=== PATIENT | female | born 1950 | race Caucasian/White ===

== ENCOUNTER 2021-09-14 17:58 | Observation (INO) | payer MEDICARE ==
[2021-09-14] MEDS ORDERED: MORPHINE SULFATE 4 MG INJ IV ONE (18:30)
[2021-09-14] MEDS ORDERED: Sodium Chloride 0.9% 1000 ML 1,000 ML IV STA (18:30)
[2021-09-14] MEDS ORDERED: Zofran 4 MG/2 ML VIAL IV ONE (18:30)
[2021-09-14] MEDS ORDERED: MORPHINE SULFATE 4 MG INJ ONE (18:37)
[2021-09-14] MEDS ORDERED: Sodium Chloride 0.9% 1000 ML 1,000 ML ONE (18:37)
[2021-09-14] MEDS ORDERED: Zofran 4 MG/2 ML VIAL ONE (18:37)
--- NOTE | 2021-09-14 18:47 | ERPHSYRPT ---
- History of Present Illness Historian: patient Exam Limitations: no limitations Patient Subjective Stated Complaint: pt here for abd pain for 2 days, no nausea, states pain is worse after she eats Triage Nursing Assessment: pt alert, arrived per wc, resp easy,skin w/w/p, abd soft pain to upper abd Timing/Duration: day(s) (two days) Activities at Onset: none Quality: cramping Abdominal Pain Onset Location: RLQ, periumbilical Pain Radiation: no radiation Severity of Pain-Max: moderate Severity of Pain-Current: moderate Modifying Factors: Improves With: nothing Associated Symptoms: denies symptoms Hx Influenza Vaccination/Date Given: Yes Hx Pneumococcal Vaccination/Date Given: No Immunizations Up to Date: Yes <OSMAR LEE - Last Filed: 09/14/21 18:44> <IDALMIS PAREDES - Last Filed: 09/14/21 20:14> - History of Present Illness Time Seen by Provider: 09/14/21 18:44 Physician History: pt here for abd pain for 2 days, no nausea, states pain is worse after she eats Patient is 70-year-old female with significant past medical history of hypertension obesity osteoarthritis of the knee started having abdominal pain in the right lower quadrant and periumbilical area 2 days ago which did got better yesterday but today afternoon when she ate her pain came back and it got worse. It is crampy in nature on the right lower quadrant as well as periumbilical area. Patient had a bowel movement which was normal. Patient denies any fever chills nausea vomiting or blood in the stool or urine. (JESUS,OSMAR) Allergies/Adverse Reactions: dimenhydrinate [From Dramamine] Allergy (Verified 11/30/14 21:55) Penicillins Allergy (Verified 11/30/14 21:55) acetaminophen [From Darvocet-N 100] Adverse Reaction (Verified 11/30/14 21:55) propoxyphene napsylate [From Darvocet-N 100] Adverse Reaction (Verified 11/30/14 21:55) Sulfa (Sulfonamide Antibiotics) Adverse Reaction (Verified 11/30/14 21:55) Home Medications: Aspirin 81 gm Chew [Baby Aspirin 81 mg Chew] 81 mg DAILY 11/30/14 [History] Levothyroxine Sodium 50 Mcg [Synthroid 50 Mcg] 75 mcg DAILY 11/30/14 [History] Omeprazole 20 MG [Prilosec 20 mg] 20 mg DAILY 11/30/14 [History] Benazepril/Hydrochlorothiazide [Benazepril-Hctz 10-12.5 mg Tab] 1 ea DAILY 09/14/21 [History] Isosorbide Mononitrate 30 mg [Imdur 30 MG] 1 ea DAILY 09/14/21 [History] Magnesium Chloride [Magnesium] 50 mg DAILY 09/14/21 [History] Potassium Chloride 10 Meq Tab* [Klor Con 10 MEQ] 1 ea DAILY 09/14/21 [History] Pramipexole Di-HCl [Pramipexole Dihydrochloride] 1 ea DAILY 09/14/21 [History] Travel Risk - International Travel Have you traveled outside of the country in past 3 weeks: No - Coronavirus Screening Are you exhibiting any of the following symptoms?: No Close contact with a COVID-19 positive Pt in past 14-21 Days: No - Vaccine Status Have you recieved a Covid-19 vaccination: Yes [employer] 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 - Vaccination Dates Date of 2cond Vaccination (if applicable): dec 2020 <JAIDEN LEEYESH - Last Filed: 09/14/21 18:44> - Review of Systems Constitutional: No Fever, No Chills Eyes: No Symptoms Ears, Nose, & Throat: No Symptoms Respiratory: No Cough, No Dyspnea Cardiac: No Chest Pain, No Edema, No Syncope Abdominal/Gastrointestinal: Abdominal Pain, No Nausea, No Vomiting, No Diarrhea Genitourinary Symptoms: No Dysuria Musculoskeletal: No Back Pain, No Neck Pain Skin: No Rash Neurological: No Dizziness, No Focal Weakness, No Sensory Changes Psychological: No Symptoms Endocrine: No Symptoms All Other Systems: Reviewed and Negative <JESUS - Last Filed: 09/14/21 18:44> - Past Medical History Pertinent Past Medical History: Yes Neurological History: No Pertinent History ENT History: Cataracts Cardiac History: Hypertension Respiratory History: No Pertinent History Endocrine Medical History: Hypothyroidism Musculoskeletal History: Osteoarthritis GI Medical History: Esophageal Disorder, GERD History: No Pertinent History Psycho-Social History: No Pertinent History Female Reproductive Disorders: No Pertinent History Other Medical History: RESTLESS LEG SYNDROME - Past Surgical History Past Surgical History: Yes Neuro Surgical History: No Pertinent History Cardiac: No Pertinent History Respiratory: No Pertinent History Gastrointestinal: No Pertinent History Genitourinary: No Pertinent History Musculoskeletal: No Pertinent History Female Surgical History: Hysterectomy Other Surgical History: Bilateral lens implants - Social History Smoking Status: Current every day smoker How long have you smoked: 30 Exposure to second hand smoke: Yes Drug Use: none Patient Lives Alone: Yes - Female History Hx Last Menstrual Period: post Hx Now: No <JESUS - Last Filed: 09/14/21 18:44> - Physical Exam General Appearance: no apparent distress, alert Eye Exam: PERRL/EOMI, eyes nml inspection Ears, Nose, Throat Exam: normal ENT inspection, pharynx normal, moist mucous membranes Neck Exam: normal inspection, non-tender, supple, full range of motion Respiratory Exam: normal breath sounds, lungs clear, No respiratory distress Cardiovascular Exam: regular rate/rhythm, normal heart sounds Gastrointestinal/Abdomen Exam: soft, tenderness (RLQ), No mass Back Exam: normal inspection, normal range of motion, No CVA tenderness, No vertebral tenderness Extremity Exam: normal inspection, normal range of motion, pelvis stable Neurologic Exam: alert, oriented x 3, cooperative, normal mood/affect, nml cerebellar function, sensation nml, No motor deficits Skin Exam: normal color, warm, dry SpO2: 96 <JESUS Last Filed: 09/14/21 18:44> - Nursing Vital Signs Nursing Vital Signs: Initial Vital Signs Temperature 97.0 F 09/14/21 18:14 Pulse Rate 90 09/14/21 18:14 Respiratory Rate 18 09/14/21 18:14 Blood Pressure 187/80 09/14/21 18:14 O2 Sat by Pulse Oximetry 96 09/14/21 18:14 Pain Scale Pain Intensity 7 - Course Nursing assessment & vital signs reviewed: Yes - CT Exams Abdomen/Pelvis CT Interpretation: Tele-radiologist Report <JESUS Last Filed: 09/14/21 18:44> Ordered Tests: Active Orders 24 hr Category Date Time Status Code Status Order ROUTINE Care 09/14/21 20:05 Active Code Status Order ROUTINE Care 09/14/21 20:09 Active IV Care Q6H Care 09/14/21 20:05 Active IV Care Q6H Care 09/14/21 20:[address] in Observation ROUTINE Care 09/14/21 20:05 Active NPO Diet 09/14/21 20:07 Active ABDOMEN AND PELVIS W/0 CONTRAS [CT] Stat Exams 09/14/21 18:30 Ordered AMYLASE Stat Lab 09/14/21 18:57 Completed CBC W DIFF AM.LAB Lab 09/15/21 04:00 Ordered CBC W DIFF Stat Lab 09/14/21 18:57 Completed CMP AM.LAB Lab 09/15/21 04:00 Ordered CMP Stat Lab 09/14/21 18:57 Completed LIPASE Stat Lab 09/14/21 18:57 Completed UA W/RFX UR CULTURE Stat Lab 09/14/21 18:35 Completed Medication Summary Generic Name Dose Route Start Last Admin Trade Name Freq PRN Reason Stop Dose Admin Hydromorphone HCl 1 mg 09/14/21 20:07 Hydromorphone 1 Mg/1ml Inj 1 Mg/Ml Syringe IV 09/19/21 20:06 Q4H PRN PRN PAIN Sodium Chloride 1,000 mls @ 100 mls/hr 09/14/21 20:15 Sodium Chloride 0.9% 1000 Ml IV 10/14/21 20:14 .Q10H APPLE Piperacillin Sod/Tazobactam 100 mls @ 200 mls/hr 09/15/21 00:00 Sod 3.375 gm/ Sodium Chloride IV 09/18/21 00:00 Q6HT APPLE Ondansetron HCl 4 mg 09/14/21 20:07 Ondansetron Hcl 4 Mg/2 Ml Vial IV 10/14/21 20:06 Q6H PRN PRN NAUSEA/VOMITING Discontinued Medications Generic Name Dose Route Start Last Admin Trade Name Freq PRN Reason Stop Dose Admin Sodium Chloride 1,000 mls @ 999 mls/hr 09/14/21 18:30 09/14/21 18:40 Sodium Chloride 0.9% 1000 Ml IV 09/14/21 19:30 999 mls/hr .Q1H1M STA Administration Sodium Chloride Confirm 09/14/21 18:37 Sodium Chloride 0.9% 1000 Ml Administered 09/14/21 18:38 Dose 1,000 mls @ ud .ROUTE .STK-MED ONE Morphine Sulfate 4 mg 09/14/21 18:30 10/31/21 18:40 Morphine Sulfate 4 Mg/Ml Injection IV 09/14/21 18:31 4 mg STAT ONE Administration Morphine Sulfate Confirm 09/14/21 18:37 Morphine Sulfate 4 Mg/Ml Injection Administered 09/14/21 18:38 Dose 4 mg .ROUTE .STK-MED ONE Ondansetron HCl 4 mg 09/14/21 18:30 09/14/21 18:40 Ondansetron Hcl 4 Mg/2 Ml Vial IV 09/14/21 18:31 4 mg STAT ONE Administration Ondansetron HCl Confirm 09/14/21 18:37 Ondansetron Hcl 4 Mg/2 Ml Vial Administered 09/14/21 18:38 Dose 4 mg .ROUTE .STK-MED ONE Lab/Rad Data: Laboratory Result Diagrams 09/14/21 18:57 09/14/21 18:57 Laboratory Results 09/14/21 09/14/21 09/14/21 Range/Units 18:57 18:57 18:35 WBC 12.1 H (4.0-10.5) K/mm3 RBC 5.35 (4.1-5.4) M/mm3 Hgb 15.1 (12.0-16.0) gm/dl Hct 46.7 (35-47) % MCV 87.3 (78-100) fl MCH 28.2 (26-32) pg MCHC 32.3 (32-36) g/dl RDW 14.9 H (11.5-14.0) % Plt Count 269 (150-450) K/mm3 MPV 11.7 H (7.5-11.0) fl Gran % 74.7 H (36.0-66.0) % Eos # (Auto) 0.14 (0-0.5) Absolute Lymphs (auto) 2.01 (1.0-4.6) Absolute Monos (auto) 0.88 (0.0-1.3) Lymphocytes % 16.6 L (24.0-44.0) % Monocytes % 7.3 (0.0-12.0) % Eosinophils % 1.2 (0.00-5.0) % Basophils % 0.2 (0.0-0.4) % Absolute Granulocytes 9.03 H (1.4-6.9) Basophils # 0.02 (0-0.4) Sodium 136 L (137-145) mmol/L Potassium 3.9 (3.5-5.1) mmol/L Chloride 100 (98-107) mmol/L Carbon Dioxide 24 (22-30) mmol/L Anion Gap 16.1 H (5-15) MEQ/L BUN 13 (7-17) mg/dL Creatinine 0.82 (0.52-1.04) mg/dL Estimated GFR > 60.0 ML/MIN Glucose 126 H (74-106) mg/dL Calcium 10.2 (8.4-10.2) mg/dL Total Bilirubin 0.60 (0.2-1.3) mg/dL AST 24 (14-36) U/L ALT 14 (0-35) U/L Alkaline Phosphatase 119 (38-126) U/L Serum Total Protein 8.1 (6.3-8.2) g/dL Albumin 4.5 (3.5-5.0) g/dL Amylase 65 (30-110) U/L Lipase 57 (23-300) U/L Urine Color YELLOW (YELLOW) Urine Appearance SLIGHTLY CLOUDY (CLEAR) Urine pH 7.0 (5-6) Ur Specific [place] 1.014 (1.005-1.025) Urine Protein NEGATIVE (Negative) Urine Ketones NEGATIVE (NEGATIVE) Urine Blood NEGATIVE (0-5) Enoc/ul Urine Nitrite NEGATIVE (NEGATIVE) Urine Bilirubin NEGATIVE (NEGATIVE) Urine Urobilinogen NEGATIVE (0-1) mg/dL Ur Leukocyte Esterase SMALL (NEGATIVE) Urine WBC (Auto) 0-2 (0-5) /HPF Urine RBC (Auto) 0-2 (0-2) /HPF U Epithel Cells (Auto) RARE (FEW) /HPF Urine Bacteria (Auto) MODERATE (NEGATIVE) /HPF Amorphous Crystals FEW (NEGATIVE) /HPF Urine Culture Reflexed NO (NO) Urine Glucose NEGATIVE (NEGATIVE) mg/dL - Progress Progress: improved Discussed with : Wade Will see patient in: hospital (observation) Counseled pt/family regarding: lab results, diagnosis <IDALMIS PAREDES - Last Filed: 09/14/21 20:14> - Progress Progress Note: 09/14/21 20:11 On my physical exam patient does have right upper quadrant pain. Not an acute abdomen. No other falls or trauma. CT reading is positive for acute cholecystitis. Cholelithiasis with gallbladder sludge and gallbladder wall thickening. Given this I discussed over the phone with on-call surgeon, Dr. Chen. He agreed the patient should be admitted, gallbladder most likely out tomorrow. Discussed this with the patient and the inpatient physician, Dr. Bergeron. She did accept the patient. Basic orders placed at this point time. Patient does appear overall stable. We will still do Zosyn. N.p.o. at midnight, patient will be admitted. (IDALMIS PAREDES) <OSMAR LEE - Last Filed: 09/14/21 18:44> - Departure Departure Disposition: Home Critical Care Time: No <IDALMIS PAREDES - Last Filed: 09/14/21 20:14> - Departure Clinical Impression: Acute cholecystitis Condition: Stable Referrals: OSMAR LEE MD [Primary Care Provider] -
[2021-09-14 19:01] LABS: Absolute Neutrophil Ct (ANC) 9.03 (1.4-6.9); BASOPHIL % 0.2 % (0.0-0.4); Basophil (Absolute #) 0.02 (0-0.4); Eosinophil % 1.2 % (0.00-5.0); Eosinophil (Absolute #) 0.14 (0-0.5); Hematocrit 46.7 % (35-47); Hemoglobin 15.1 gm/dl (12.0-16.0); Lymphocyte (Absolute #) 2.01 (1.0-4.6); Lymphocytes % 16.6 % (24.0-44.0); Mean Cell Volume 87.3 fl (78-100); Mean Corpuscular Hemoglobin 28.2 pg (26-32); Mean Corpuscular Hgb Concent. 32.3 g/dl (32-36); Mean Platelet Volume 11.7 fl (7.5-11.0); Monocyte (Absolute #) 0.88 (0.0-1.3); Monocytes % 7.3 % (0.0-12.0); Neutrophil % 74.7 % (36.0-66.0); Platelet Count 269 K/mm3 (150-450); Red Blood Count 5.35 M/mm3 (4.1-5.4); Red Cell Distribution Width 14.9 % (11.5-14.0); White Blood Count 12.1 K/mm3 (4.0-10.5)
[2021-09-14 19:12] LABS: Appearance SLIGHTLY CLOUDY (CLEAR); Bilirubin NEGATIVE (NEGATIVE); Blood NEGATIVE Ery/ul (0-5); Glucose NEGATIVE (NEGATIVE); Ketones NEGATIVE (NEGATIVE); Leukocyte Esterase SMALL (NEGATIVE); Nitrite NEGATIVE (NEGATIVE); Protein,Urine Dip NEGATIVE (Negative); Specific Gravity 1.014 (1.005-1.025); Urobilinogen NEGATIVE mg/dL (0-1)
[2021-09-14 19:22] LABS: WBC 0-2 /HPF (0-5)
[2021-09-14 19:23] LABS: Amourphous Crystal FEW /HPF (NEGATIVE); Bacteria MODERATE /HPF (NEGATIVE); Epithelial Cells RARE /HPF (FEW); RBC 0-2 /HPF (0-2)
[2021-09-14 19:25] LABS: ALBUMIN 4.5 g/dL (3.5-5.0); ALKALINE PHOSPHATASE 119 U/L (38-126); AMYLASE 65 U/L (30-110); ANION GAP 16.1 MEQ/L (5-15); BLOOD UREA NITROGEN 13 mg/dL (7-17); CHLORIDE 100 mmol/L (98-107); Calcium 10.2 mg/dL (8.4-10.2); Carbon Dioxide 24 mmol/L (22-30); Creatinine 1 0.82 mg/dL (0.52-1.04); EST GLOMERULAR FILTRATION RATE > 60.0 ML/MIN; Glucose 126 mg/dL (74-106); LIPASE 57 U/L (23-300); Potassium 3.9 mmol/L (3.5-5.1); SGOT/AST 24 U/L (14-36); SGPT/ALT 14 U/L (0-35); SODIUM 136 mmol/L (137-145); Total Protein 8.1 g/dL (6.3-8.2)
[2021-09-14] MEDS ORDERED: Hydromorphone 1 mg/ml Injection IV PRN (20:07)
[2021-09-14] MEDS ORDERED: Zofran 4 MG/2 ML VIAL IV PRN (20:07)
[2021-09-14] MEDS ORDERED: Zosyn 3.375 GM Vial IV ONE (20:35)
[2021-09-14] MEDS ORDERED: Sodium Chloride 100ML MINI-BAG PLUS 100 ML IV ONE (20:36)
[2021-09-14] MEDS: Zosyn 3.375 GM Vial 3.375 GM in Sodium Chloride 100ML MINI-BAG PLUS 100 ML IV SCH (20:43)
[2021-09-14] MEDS: Sodium Chloride 0.9% 1000 ML 1,000 ML IV SCH (20:44)
[2021-09-14] MEDS ORDERED: Mirapex 0.5 MG Tablet PO ONE (23:40)
[2021-09-14] MEDS ORDERED: Zocor 10MG PO ONE (23:42)
[2021-09-14] MEDS ORDERED: Klor Con 10 MEQ PO ONE (23:44)
[2021-09-15] MEDS ORDERED: Zosyn 3.375 GM Vial IV ONE (03:23)
[2021-09-15] MEDS ORDERED: Sodium Chloride 100ML MINI-BAG PLUS 100 ML IV ONE (03:24)
[2021-09-15] MEDS: Zosyn 3.375 GM Vial 3.375 GM in Sodium Chloride 100ML MINI-BAG PLUS 100 ML IV SCH ×4 (03:28→20:26)
[2021-09-15 05:04] LABS: Absolute Neutrophil Ct (ANC) 11.57 (1.4-6.9); BASOPHIL % 0.1 % (0.0-0.4); Basophil (Absolute #) 0.01 (0-0.4); Eosinophil % 0.6 % (0.00-5.0); Eosinophil (Absolute #) 0.08 (0-0.5); Hematocrit 45.6 % (35-47); Hemoglobin 14.3 gm/dl (12.0-16.0); Lymphocyte (Absolute #) 1.56 (1.0-4.6); Lymphocytes % 10.8 % (24.0-44.0); Mean Cell Volume 89.2 fl (78-100); Mean Corpuscular Hgb Concent. 31.4 g/dl (32-36); Mean Platelet Volume 11.5 fl (7.5-11.0); Monocyte (Absolute #) 1.27 (0.0-1.3); Monocytes % 8.8 % (0.0-12.0); Neutrophil % 79.7 % (36.0-66.0); Platelet Count 252 K/mm3 (150-450); Red Blood Count 5.11 M/mm3 (4.1-5.4); Red Cell Distribution Width 15.1 % (11.5-14.0); White Blood Count 14.5 K/mm3 (4.0-10.5)
[2021-09-15 05:26] LABS: ALBUMIN 3.9 g/dL (3.5-5.0); ALKALINE PHOSPHATASE 99 U/L (38-126); ANION GAP 9.9 MEQ/L (5-15); BLOOD UREA NITROGEN 12 mg/dL (7-17); CHLORIDE 101 mmol/L (98-107); Calcium 9.5 mg/dL (8.4-10.2); Carbon Dioxide 29 mmol/L (22-30); EST GLOMERULAR FILTRATION RATE > 60.0 ML/MIN; Glucose 135 mg/dL (74-106); Potassium 4.6 mmol/L (3.5-5.1); SGOT/AST 23 U/L (14-36); SGPT/ALT 12 U/L (0-35); SODIUM 136 mmol/L (137-145); Total Protein 7.1 g/dL (6.3-8.2)
[2021-09-15] MEDS: Sodium Chloride 0.9% 1000 ML 1,000 ML IV SCH ×2 (06:55→22:25)
--- NOTE | 2021-09-15 08:47 | XRAY ---
Indication: Periumbilical and right lower quadrant pain. Multiple contiguous axial images obtained through the abdomen and pelvis without contrast. Comparison: None. Lung bases demonstrates minimal dependent atelectasis and small left lower lobe calcified granuloma. No infiltrate or effusion. Heart is not enlarged. Small hiatal hernia. Images through the pelvis Limited due to extreme beam artifact from bilateral total hip arthroplasty. Noncontrasted stomach and bowel loops appear nonobstructed. Normal appendix. Scattered sigmoid diverticulosis without diverticulitis. Tiny splenic calcific granulomas and nonobstructing right renal punctate calculus. Previous hysterectomy. Gallbladder mildly distended with subtle hyperdense intraluminal radiopacities, probable sludge, 3 cm gallstone, and pericholecystic stranding concerning for cholecystitis. No abnormal biliary distention. Remaining liver, pancreas, spleen, adrenal glands, kidneys, ureters, and bladder are unremarkable for noncontrast exam. Osseous structures intact with mild osteopenia and mild/moderate degenerative spondylosis throughout the thoracolumbar spine. Impression: 1. Bilateral total hip arthroplasty producing extreme beam artifact limiting evaluations of the pelvis. 2. Abnormal gallbladder as detailed concerning for acute cholecystitis. 3. Incidental small hiatal hernia, sigmoid diverticulosis, nonobstructing right renal micro-calculus, chronic bony findings, and old granulomatous disease. Comment: Preliminary interpretation made by [facility]. No critical discrepancy.
[2021-09-15] MEDS ORDERED: ECOTRIN 81 MG PO SCH (10:00)
[2021-09-15] MEDS ORDERED: VITAMIN D3 PO SCH (10:00)
[2021-09-15] MEDS ORDERED: NON-FORMULARY ITEM (Omeprazole 20 Mg [Prilosec 20 Mg] 20 MG Capsule.Dr) PO SCH (10:00)
[2021-09-15] MEDS ORDERED: [UNRECOGNIZED DRUG - OTHER] PO SCH (10:00)
[2021-09-15] MEDS ORDERED: BENAZEPRIL PO SCH (10:00)
[2021-09-15] MEDS ORDERED: HYDROCHLOROTHIAZIDE PO SCH (10:00)
[2021-09-15] MEDS ORDERED: CALCIUM CARBONATE PO SCH (10:00)
[2021-09-15] MEDS ORDERED: [UNRECOGNIZED DRUG - OTHER] PO SCH (10:00)
--- NOTE | 2021-09-15 10:17 | XRAY ---
Indication: Abdomen pain. Abnormal gallbladder on recent CT. Two-dimensional gallbladder sonogram performed. Comparison: None [employer] notes limited exam due to patient body habitus. Pancreas not visualized. Visualized gallbladder normally distended with moderate intraluminal sludge and 3.3 cm gallstone. Also abnormal gallbladder wall thickening up to 7.5 mm. No pericholecystic fluid. Common bile duct measures 6.3 mm. No intrahepatic biliary distention. Diffuse fatty echogenic liver without focal solid/cystic mass or ascites. Right kidney measures 9 cm in length and sonographically unremarkable. Impression: 1. Limited sonogram due to patient body habitus. Nonvisualization pancreas. 2. Abnormal gallbladder demonstrating large gallstone, wall thickening, and sludge. Rule out cholecystitis. 3. Fatty liver.
[2021-09-15] MEDS: SYNTHROID 75 MCG PO SCH (10:47)
[2021-09-15] MEDS: Protonix 40MG Tablet PO SCH (10:48)
[2021-09-15] MEDS: Imdur 30 MG PO SCH (10:48)
[2021-09-15] MEDS: hydroDIURIL 25 MG PO SCH (10:48)
[2021-09-15] MEDS: Lotensin 10 MG PO SCH (10:48)
[2021-09-15] MEDS: BUMEX 1 MG PO SCH (10:48)
[2021-09-15] MEDS: Klor Con 10 MEQ PO SCH ×2 (10:54→22:49)
[2021-09-15] MEDS: Calcium 500MG W/Vit D Tablet PO SCH (10:55)
[2021-09-15] MEDS ORDERED: Levofloxacin 500MG/100ML D5W 500 MG/100 ML BAG IV SCH (12:15)
[2021-09-15] MEDS ORDERED: Lactated Ringers 1,000 ML IV SCH (12:30)
[2021-09-15] MEDS ORDERED: CLINDAMYCIN-D5W 900 MG/50 ML*** 900 MG/50 ML BAG IV SCH (12:30)
--- NOTE | 2021-09-15 14:42 | CONS ---
CONSULT DATE: 09/15/2021 This patient is seen for Dr. Amos Chen who was consulted. HISTORY: She is a morbidly obese, 70-year-old female who had some upper abdominal right-sided pain. She came to the hospital and noted to have distended gallbladder and a little bit of thickening 3 cm to 3.5 cm gallstone. She denies any prior abdominal surgeries. She had hip and knee replacements in the past. She had hysterectomy in the past. She denied any upper abdominal surgery in the past. PAST MEDICAL HISTORY: Obesity. Hypertension. Hypothyroidism. Osteoarthritis. She had some reflux in the past. PAST SURGICAL HISTORY: Cataracts in the past. Hip and knee replacement. Hysterectomy. Lens implants in the past. HOME MEDICATIONS: Aspirin, levothyroxine for some hypothyroidism, omeprazole, benazepril, hydrochlorothiazide for hypertension, isosorbide mononitrate, magnesium chloride, potassium chloride, Pramipexole. ALLERGIES: PENICILLIN. SULFA. DRAMAMINE. SHE DOES NOT KNOW IF SHE HAS TAKEN KEFLEX. FAMILY HISTORY: Negative in regards to this problem. SOCIAL HISTORY: She has history of smoking. REVIEW OF SYSTEMS: Fourteen systems reviewed per admission assessment pertinent for as noted above. She denies any heart problems in the past. PHYSICAL EXAMINATION: GENERAL: No acute distress. Slightly obese female. HEENT: Sclera nonicteric. NECK: No JVD. CHEST: Equal excursion, nonlabored breathing. CVS: Regular rhythm. ABDOMEN: Obese. She has tenderness in the right upper quadrant. EXTREMITIES: No cyanosis. NEURO: Alert, oriented. PSYCH: Appropriate mood and affect. IMPRESSION: I am seeing this patient for Dr. Amos Chen who was consulted when he was medical care evaluation specialist yesterday. An obese 70-year-old female with acute exacerbation of chronic cholecystitis, symptomatic cholelithiasis. I feel she will benefit from cholecystectomy. General risk of bleeding or infection, risk of trocar injury or hernia, risk of bowel, bladder or blood vessel injury, risk of bile leak, bile duct injury, retained stone or sludge possibly requiring further procedure either open or ERCP, general risk of anesthesia, deep venous thrombosis, pulmonary embolism, pneumonia, perioperative risk of aches, pains, bloating, constipation and/or loose stools possibly chronic in nature, possibility of open procedure given her body habitus and degree of inflammation but not limited to. At this point will see if there is later time today with either Dr. Amos Chen or myself on the schedule.
[2021-09-15] MEDS ORDERED: Quelicin Fliptop 200 MG/10 ML ONE (17:43)
[2021-09-15] MEDS ORDERED: Zemuron 100 MG/10 ML ONE (17:43)
[2021-09-15] MEDS ORDERED: DIPRIVAN 200 MG/20 ML IV ONE (17:43)
[2021-09-15] MEDS ORDERED: Versed 2 MG/2 ML Injection ONE (17:44)
[2021-09-15] MEDS ORDERED: SUBLIMAZE 250 MCG/5 ML ONE (17:44)
[2021-09-15] MEDS ORDERED: Sensorcaine 0.25% 10 ML ONE (18:00)
[2021-09-15] MEDS ORDERED: PHENYLEPHRINE HCL ONE (18:19)
--- NOTE | 2021-09-15 18:30 | PCM.HP ---
History of Present Illness - Chief Complaint Chief Complaint: abdominal pain for 2 days History of Present Illness: is a 70 year old female. with significant past medical history of hypertension obesity osteoarthritis of the knee started having abdominal pain in the right lower quadrant and periumbilical area 2 days ago which did got better yesterday but today afternoon when she ate her pain came back and it got worse. It is crampy in nature on the right lower quadrant as well as periumbilical area. Patient had a bowel movement which was normal. Patient denies any fever chills nausea vomiting or blood in the stool or urine. - Review of Systems Constitutional: No Fever, No Chills Eyes: No Symptoms Ears, Nose, & Throat: No Symptoms Respiratory: No Cough, No Short Of Breath Cardiac: No Chest Pain, No Edema, No Syncope Abdominal/Gastrointestinal: Abdominal Pain, No Nausea, No Vomiting, No Diarrhea, No Appetite Changes Genitourinary Symptoms: No Dysuria, No Incontinence Musculoskeletal: No Back Pain, No Neck Pain Skin: No Rash Neurological: No Dizziness, No Focal Weakness, No Sensory Changes Psychological: No Symptoms Endocrine: No Symptoms Hematologic/Lymphatic: No Symptoms Immunological/Allergic: No Symptoms Medications & Allergies Home Medications: Home Medication List Aspirin 81 gm Chew [Baby Aspirin 81 mg Chew] 81 mg PO DAILY 11/30/14 [History Confirmed 09/14/21] Levothyroxine Sodium 50 Mcg [Synthroid 50 Mcg] 75 mcg PO DAILY 11/30/14 [H istory Confirmed 09/14/21] Omeprazole 20 MG [Prilosec 20 mg] 20 mg PO DAILY 11/30/14 [History Confirmed 09/14/21] Atorvastatin Calcium 10 mg PO HS 09/14/21 [History Confirmed 09/15/21] Benazepril/Hydrochlorothiazide [Benazepril-Hctz 10-12.5 mg Tab] 1 tab PO DAILY 09/14/21 [History Confirmed 09/14/21] Calcium Carbonate/Vitamin D3 [Vitamin D-3 400 Units Tablet] 1 tab PO DAILY 09/14/21 [History Confirmed 09/14/21] Isosorbide Mononitrate 30 mg [Imdur 30 MG] 1 tab PO DAILY 09/14/21 [History Confirmed 09/14/21] Potassium Chloride 10 Meq Tab* [Klor Con 10 MEQ] 1 tab PO BID 09/14/21 [History Confirmed 09/14/21] Pramipexole Di-HCl [Pramipexole Dihydrochloride] 1 tab PO HS 09/14/21 [History Confirmed 09/15/21] Bumetanide 1 mg [Bumex 1 mg] 1 mg PO DAILY 09/15/21 [History Confirmed 09/15/21] Hydrocodone/Acetaminophen [Hydrocodone-Acetamin 5-325 mg] 1 tab PO Q4HPRN PRN #24 tablet MDD 6 09/15/21 [Rx] Hydrocodone/Acetaminophen [Hydrocodone-Acetamin 5-325 mg] 1 tab PO Q6HPRN PRN 7 Days #20 tablet MDD 4 09/15/21 [Rx] Allergies/Adverse Reactions: Allergies Allergy/AdvReac Type Severity Reaction Status Date / Time dimenhydrinate Allergy Verified 11/30/14 21:55 [From Dramamine] Penicillins Allergy Verified 11/30/14 21:55 acetaminophen AdvReac Verified 11/30/14 21:55 [From Darvocet-N 100] propoxyphene napsylate AdvReac Verified 11/30/14 21:55 [From Darvocet-N 100] Sulfa (Sulfonamide AdvReac Verified 11/30/14 21:55 Antibiotics) - Past Medical History Past Medical History: Yes Neurological History: No Pertinent History ENT History: Cataracts Cardiac History: Hypertension Respiratory History: No Pertinent History Endocrine Medical History: Hypothyroidism Musculoskelatal History: Osteoarthritis GI Medical History: Esophageal Disorder, GERD History: No Pertinent History Pyscho-Social History: No Pertinent History Reproductive Disorders: No Pertinent History Comment: RESTLESS LEG SYNDROME - Female History Hx Last Menstrual Period: post Are you now?: No - Past Surgical History Past Surgical History: Yes Neuro Surgical History: No Pertinent History Cardiac History: No Pertinent History Respiratory Surgery: No Pertinent History GI Surgical History: No Pertinent History Genitourinary Surgical Hx: No Pertinent History Musculskeletal Surgical Hx: No Pertinent History, Orthopedic Surgery Female Surgical History: Hysterectomy Other Surgical History: Bilateral lens implants, rhonda knee and rhonda hip - Social History Smoking Status: Current every day smoker How long have you smoked: 30 Exposure to second hand smoke: Yes Alcohol: None Drug Use: none - Physical Exam Vital Signs: Vital Signs - 24 hr Temp Pulse Resp BP Pulse Ox 09/15/21 16:00 98.0 F 90 16 143/64 92 L 09/15/21 12:00 96.1 F 90 16 136/63 90 L 09/15/21 08:00 96.1 F 90 16 136/63 90 L 09/15/21 07:43 16 09/15/21 07:27 97.9 F 92 H 16 189/79 92 L 09/15/21 04:00 97.6 F 99 H 20 165/80 95 09/15/21 00:00 18 09/14/21 22:45 97.5 F 86 20 178/80 97 09/14/21 21:00 85 16 128/86 96 09/14/21 20:00 91 H 18 96 09/14/21 19:00 86 18 206/86 97 09/14/21 18:47 96 General Appearance: no apparent distress, alert Neurologic Exam: alert, oriented x 3, cooperative, normal mood/affect, nml ce rebellar function, nml station & gait, sensation nml, No motor deficits Eye Exam: PERRL/EOMI, eyes nml inspection Ears, Nose, Throat Exam: normal ENT inspection, TMs normal, pharynx normal, moist mucous membranes Neck Exam: normal inspection, non-tender, supple, full range of motion Respiratory Exam: normal breath sounds, lungs clear, No respiratory distress Cardiovascular Exam: regular rate/rhythm, normal heart sounds, normal peripheral pulses Gastrointestinal/Abdomen Exam: soft, normal bowel sounds, tenderness, No mass Back Exam: normal inspection, normal range of motion, No CVA tenderness, No vertebral tenderness Extremity Exam: normal inspection, normal range of motion, pelvis stable Skin Exam: normal color, warm, dry, No rash Wound Assessment: Skin/Wound Assessment Wound/Incision Assessment Start: 09/14/21 22:00 Text: Status: Active Freq: Q4H Protocol: Document 09/15/21 16:00 DC (Rec: 09/15/21 17:27 DC [id number]) Wound Photo Photo Taken No Comment: going to surgery Lymphatic Exam: No adenopathy Results - Labs Lab/Micro Results: Lab Results-Last 24 Hours 09/14/21 09/14/21 09/14/21 Range/Units 18:35 18:57 18:57 WBC 12.1 H (4.0-10.5) K/mm3 RBC 5.35 (4.1-5.4) M/mm3 Hgb 15.1 (12.0-16.0) gm/dl Hct 46.7 (35-47) % MCV 87.3 (78-100) fl MCH 28.2 (26-32) pg MCHC 32.3 (32-36) g/dl RDW 14.9 H (11.5-14.0) % Plt Count 269 (150-450) K/mm3 MPV 11.7 H (7.5-11.0) fl Gran % 74.7 H (36.0-66.0) % Eos # (Auto) 0.14 (0-0.5) Absolute Lymphs (auto) 2.01 (1.0-4.6) Absolute Monos (auto) 0.88 (0.0-1.3) Lymphocytes % 16.6 L (24.0-44.0) % Monocytes % 7.3 (0.0-12.0) % Eosinophils % 1.2 (0.00-5.0) % Basophils % 0.2 (0.0-0.4) % Absolute Granulocytes 9.03 H (1.4-6.9) Basophils # 0.02 (0-0.4) Sodium 136 L (137-145) mmol/L Potassium 3.9 (3.5-5.1) mmol/L Chloride 100 (98-107) mmol/L Carbon Dioxide 24 (22-30) mmol/L Anion Gap 16.1 H (5-15) MEQ/L BUN 13 (7-17) mg/dL Creatinine 0.82 (0.52-1.04) mg/dL Estimated GFR > 60.0 ML/MIN Glucose 126 H (74-106) mg/dL Calcium 10.2 (8.4-10.2) mg/dL Total Bilirubin 0.60 (0.2-1.3) mg/dL AST 24 (14-36) U/L ALT 14 (0-35) U/L Alkaline Phosphatase 119 (38-126) U/L Serum Total Protein 8.1 (6.3-8.2) g/dL Albumin 4.5 (3.5-5.0) g/dL Amylase 65 (30-110) U/L Lipase 57 (23-300) U/L Urine Color YELLOW (YELLOW) Urine Appearance SLIGHTLY CLOUDY (CLEAR) Urine pH 7.0 (5-6) Ur Specific [place] 1.014 (1.005-1.025) Urine Protein NEGATIVE (Negative) Urine Ketones NEGATIVE (NEGATIVE) Urine Blood NEGATIVE (0-5) Enoc/ul Urine Nitrite NEGATIVE (NEGATIVE) Urine Bilirubin NEGATIVE (NEGATIVE) Urine Urobilinogen NEGATIVE (0-1) mg/dL Ur Leukocyte Esterase SMALL (NEGATIVE) Urine WBC (Auto) 0-2 (0-5) /HPF Urine RBC (Auto) 0-2 (0-2) /HPF U Epithel Cells (Auto) RARE (FEW) /HPF Urine Bacteria (Auto) MODERATE (NEGATIVE) /HPF Amorphous Crystals FEW (NEGATIVE) /HPF Urine Culture Reflexed NO (NO) Urine Glucose NEGATIVE (NEGATIVE) mg/dL SARS-CoV-2 (PCR) (NEGATIVE) 09/14/21 09/15/21 09/15/21 Range/Units 20:30 04:20 04:20 WBC 14.5 H (4.0-10.5) K/mm3 RBC 5.11 (4.1-5.4) M/mm3 Hgb 14.3 (12.0-16.0) gm/dl Hct 45.6 (35-47) % MCV 89.2 (78-100) fl MCH 28.0 (26-32) pg MCHC 31.4 L (32-36) g/dl RDW 15.1 H (11.5-14.0) % Plt Count 252 (150-450) K/mm3 MPV 11.5 H (7.5-11.0) fl Gran % 79.7 H (36.0-66.0) % Eos # (Auto) 0.08 (0-0.5) Absolute Lymphs (auto) 1.56 (1.0-4.6) Absolute Monos (auto) 1.27 (0.0-1.3) Lymphocytes % 10.8 L (24.0-44.0) % Monocytes % 8.8 (0.0-12.0) % Eosinophils % 0.6 (0.00-5.0) % Basophils % 0.1 (0.0-0.4) % Absolute Granulocytes 11.57 H (1.4-6.9) Basophils # 0.01 (0-0.4) Sodium 136 L (137-145) mmol/L Potassium 4.6 (3.5-5.1) mmol/L Chloride 101 (98-107) mmol/L Carbon Dioxide 29 (22-30) mmol/L Anion Gap 9.9 (5-15) MEQ/L BUN 12 (7-17) mg/dL Creatinine 0.80 (0.52-1.04) mg/dL Estimated GFR > 60.0 ML/MIN Glucose 135 H (74-106) mg/dL Calcium 9.5 (8.4-10.2) mg/dL Total Bilirubin 0.80 (0.2-1.3) mg/dL AST 23 (14-36) U/L ALT 12 (0-35) U/L Alkaline Phosphatase 99 (38-126) U/L Serum Total Protein 7.1 (6.3-8.2) g/dL Albumin 3.9 (3.5-5.0) g/dL Amylase (30-110) U/L Lipase (23-300) U/L Urine Color (YELLOW) Urine Appearance (CLEAR) Urine pH (5-6) Ur Specific [place] (1.005-1.025) Urine Protein (Negative) Urine Ketones (NEGATIVE) Urine Blood (0-5) Enoc/ul Urine Nitrite (NEGATIVE) Urine Bilirubin (NEGATIVE) Urine Urobilinogen (0-1) mg/dL Ur Leukocyte Esterase (NEGATIVE) Urine WBC (Auto) (0-5) /HPF Urine RBC (Auto) (0-2) /HPF U Epithel Cells (Auto) (FEW) /HPF Urine Bacteria (Auto) (NEGATIVE) /HPF Amorphous Crystals (NEGATIVE) /HPF Urine Culture Reflexed (NO) Urine Glucose (NEGATIVE) mg/dL SARS-CoV-2 (PCR) NEGATIVE (NEGATIVE) - Radiology Impressions Radiology Exams & Impressions: Radiology Procedures Category Date Time Status ABDOMEN AND PELVIS W/0 CONTRAS [CT] Stat Exams 09/14/21 18:30 Completed GALLBLADDER [US] Stat Exams 09/15/21 10:00 Completed US/GALLBLADDER Indication: Abdomen pain. Abnormal gallbladder on recent CT. Two-dimensional gallbladder sonogram performed. Comparison: None Registered Respiratory Technician notes limited exam due to patient body habitus. Pancreas not visualized. Visualized gallbladder normally distended with moderate intraluminal sludge and 3.3 cm gallstone. Also abnormal gallbladder wall thickening up to 7.5 mm. No pericholecystic fluid. Common bile duct measures 6.3 mm. No intrahepatic biliary distention. Diffuse fatty echogenic liver without focal solid/cystic mass or ascites. Right kidney measures 9 cm in length and sonographically unremarkable. Impression: 1. Limited sonogram due to patient body habitus. Nonvisualization pancreas. 2. Abnormal gallbladder demonstrating large gallstone, wall thickening, and sludge. Rule out cholecystitis. 3. Fatty liver. CT/ABDOMEN AND PELVIS W/0 CONTRAS Indication: Periumbilical and right lower quadrant pain. Multiple contiguous axial images obtained through the abdomen and pelvis without contrast. Comparison: None. Lung bases demonstrates minimal dependent atelectasis and small left lower lobe calcified granuloma. No infiltrate or effusion. Heart is not enlarged. Small hiatal hernia. Images through the pelvis Limited due to extreme beam artifact from bilateral total hip arthroplasty. Noncontrasted stomach and bowel loops appear nonobstructed. Normal appendix. Scattered sigmoid diverticulosis without diverticulitis. Tiny splenic calcific granulomas and nonobstructing right renal punctate calculus. Previous hysterectomy. Gallbladder mildly distended with subtle hyperdense intraluminal radiopacities, probable sludge, 3 cm gallstone, and pericholecystic stranding concerning for cholecystitis. No abnormal biliary distention. Remaining liver, pancreas, spleen, adrenal glands, kidneys, ureters, and bladder are unremarkable for noncontrast exam. Osseous structures intact with mild osteopenia and mild/moderate degenerative spondylosis throughout the thoracolumbar spine. Impression: 1. Bilateral total hip arthroplasty producing extreme beam artifact limiting evaluations of the pelvis. 2. Abnormal gallbladder as detailed concerning for acute cholecystitis. 3. Incidental small hiatal hernia, sigmoid diverticulosis, nonobstructing right renal micro-calculus, chronic bony findings, and old granulomatous disease. Assessment/Plan (1) Acute cholecystitis Current Visit: Yes Status: Acute Assessment & Plan: Chief Complaint Diagnosis Acute cholecystitis Allergies Allergy/AdvReac Type Severity Reaction Status Date / Time dimenhydrinate Allergy Verified 11/30/14 21:55 [From Dramamine] Penicillins Allergy Verified 11/30/14 21:55 acetaminophen AdvReac Verified 01/16/15 21:55 [From Darvocet-N 100] propoxyphene napsylate AdvReac Verified 11/30/14 21:55 [From Darvocet-N 100] Sulfa (Sulfonamide AdvReac Verified 11/30/14 21:55 Antibiotics) Vital Signs (Last 24 hours) Temp Pulse Resp BP Pulse Ox 09/15/21 16:00 98.0 F 90 16 143/64 92 L 09/15/21 12:00 96.1 F 90 16 136/63 90 L 09/15/21 08:00 96.1 F 90 16 136/63 90 L 09/15/21 07:43 16 09/15/21 07:27 97.9 F 92 H 16 189/79 92 L 09/15/21 04:00 97.6 F 99 H 20 165/80 95 09/15/21 00:00 18 09/14/21 22:45 97.5 F 86 20 178/80 97 09/14/21 21:00 85 16 128/86 96 09/14/21 20:00 91 H 18 96 09/14/21 19:00 86 18 206/86 97 09/14/21 18:47 96 Home Medications Medication Instructions Recorded Confirmed Last Taken Type Atorvastatin Calcium 10 mg PO HS 09/14/21 09/15/21 09/13/21 History Benazepril/Hydrochlorothiazide 1 tab PO DAILY 09/14/21 09/14/21 09/14/21 10:00 History [Benazepril-Hctz 10-12.5 mg Tab] Calcium Carbonate/Vitamin D3 1 tab PO DAILY 09/14/21 09/14/21 09/14/21 10:00 History [Vitamin D-3 400 Units Tablet] Isosorbide Mononitrate 30 mg 1 tab PO DAILY 09/14/21 09/14/21 09/14/21 10:00 History [Imdur 30 MG] Potassium Chloride 10 Meq Tab* 1 tab PO BID 09/14/21 09/14/21 09/14/21 10:00 History [Klor Con 10 MEQ] Pramipexole Di-HCl [Pramipexole 1 tab PO HS 09/14/21 09/15/21 09/13/21 History Dihydrochloride] Bumetanide 1 mg [Bumex 1 mg] 1 mg PO DAILY 09/15/21 09/15/21 09/14/21 History Hydrocodone/Acetaminophen 1 tab PO Q4HPRN PRN #24 tablet MDD 09/15/21 Unknown Rx [Hydrocodone-Acetamin 5-325 mg] 6 Hydrocodone/Acetaminophen 1 tab PO Q6HPRN PRN 7 Days #20 09/15/21 Unknown Rx [Hydrocodone-Acetamin 5-325 mg] tablet MDD 4 Current Medications Generic Name Dose Route Start Last Admin Trade Name Freq PRN Reason Stop Dose Admin Aspirin 81 mg 09/15/21 10:00 09/15/21 10:55 Aspirin 81 Mg Tablet.Ec PO 10/15/21 09:59 Not Given DAILY APPLE Benazepril HCl 10 mg 09/15/21 10:00 09/15/21 10:48 Benazepril Hcl 10 Mg Tablet PO 10/15/21 09:59 10 mg DAILY APPLE Administration Bumetanide 1 mg 09/15/21 10:00 09/15/21 10:48 Bumetanide 1 Mg Tablet PO 10/15/21 09:59 1 mg DAILY APPLE Administration Calcium Carbonate 1 tab 09/15/21 10:00 09/15/21 10:55 Calcium Carbonate 500 Mg/Vitamin D 1 Tab Tablet PO 10/15/21 09:59 Not Given DAILY APPLE Hydrochlorothiazide 12.5 mg 09/15/21 10:00 09/15/21 10:48 Hydrochlorothiazide 25 Mg Tablet PO 10/15/21 09:59 12.5 mg DAILY APPLE Administration Hydromorphone HCl 1 mg 09/14/21 20:07 09/15/21 00:00 Hydromorphone 1 Mg/1ml Inj 1 Mg/Ml Syringe IV 09/19/21 20:06 1 mg Q4H PRN PRN Administration PAIN Sodium Chloride 1,000 mls @ 100 mls/hr 09/14/21 20:15 09/15/21 06:55 Sodium Chloride 0.9% 1000 Ml IV 10/14/21 20:14 100 mls/hr .Q10H APPLE Administration Piperacillin Sod/Tazobactam 100 mls @ 200 mls/hr 09/15/21 12:00 09/15/21 10:48 Sod 3.375 gm/ Sodium Chloride IV 09/18/21 11:59 200 mls/hr Q6HT APPLE Administration Lactated Ringer's 1,000 mls @ 50 mls/hr 09/15/21 12:30 Lactated Ringers IV 09/16/21 08:29 .Q20H APPLE Clindamycin HCl/Dextrose 900 mg in 50 mls @ 100 mls/hr 09/15/21 12:30 Clindamycin-D5w 900 Mg/50 Ml IV 09/15/21 20:00 ONCALLTOOR APPLE Levofloxacin/Dextrose 500 mg in 100 mls @ 100 mls/hr 09/15/21 12:15 Levofloxacin 500mg/100ml D5w IV 09/15/21 20:00 ONCALLTOOR APPLE Isosorbide Mononitrate 30 mg 09/15/21 10:00 09/15/21 10:48 Isosorbide Mononitrate 30 Mg Tab PO 10/15/21 09:59 30 mg DAILY APPLE Administration Levothyroxine Sodium 75 mcg 09/15/21 10:00 09/15/21 10:47 Levothyroxine Sodium 75 Mcg Tablet PO 10/15/21 09:59 75 mcg DAILY APPLE Administration Ondansetron HCl 4 mg 09/14/21 20:07 Ondansetron Hcl 4 Mg/2 Ml Vial IV 10/14/21 20:06 Q6H PRN PRN NAUSEA/VOMITING Pantoprazole Sodium 40 mg 09/15/21 10:00 09/15/21 10:48 Protonix (Pantoprazole) 40 Mg Tablet PO 10/15/21 09:59 40 mg DAILY APPLE Administration Potassium Chloride 10 meq 09/15/21 10:00 09/15/21 10:54 Potassium Chloride 10 Meq Tablet PO 10/15/21 09:59 10 meq BID APPLE Administration Pramipexole Dihydrochloride 0.5 mg 09/15/21 22:00 Pramipexole Di-Hcl 0.5 Mg Tab PO 10/15/21 21:59 HS APPLE Simvastatin 10 mg 09/15/21 22:00 Simvastatin 10 Mg Tablet PO 10/15/21 21:59 HS APPLE Discontinued Medications Generic Name Dose Route Start Last Admin Trade Name Freq PRN Reason Stop Dose Admin Bupivacaine HCl Confirm 09/15/21 18:00 Bupivacaine Hcl 2.5 Mg/Ml 10 Ml Administered 09/15/21 18:01 Dose 20 ml .ROUTE .STK-MED ONE Fentanyl Citrate Confirm 09/15/21 17:44 Fentanyl Citrate 250 Mcg/5 Ml Ampul Administered 09/15/21 17:45 Dose 250 mcg .ROUTE .STK-MED ONE Sodium Chloride 1,000 mls @ 999 mls/hr 09/14/21 18:30 09/14/21 18:40 Sodium Chloride 0.9% 1000 Ml IV 09/14/21 19:30 999 mls/hr .Q1H1M STA Administration Sodium Chloride Confirm 09/14/21 18:37 Sodium Chloride 0.9% 1000 Ml Administered 09/14/21 18:38 Dose 1,000 mls @ ud .ROUTE .STK-MED ONE Piperacillin Sod/Tazobactam 100 mls @ 200 mls/hr 09/15/21 00:00 09/15/21 06:14 Sod 3.375 gm/ Sodium Chloride IV 09/18/21 00:00 Not Given Q6HT APPLE Sodium Chloride Confirm 09/14/21 20:36 Sodium Chloride 100ml Mini-Bag Plus Administered 09/14/21 20:37 Dose 100 mls @ ud IV .STK-MED ONE Sodium Chloride Confirm 09/15/21 03:24 Sodium Chloride 100ml Mini-Bag Plus Administered 09/15/21 03:25 Dose 100 mls @ ud IV .STK-MED ONE Midazolam HCl Confirm 09/15/21 17:44 Midazolam Hcl 2 Mg/2 Ml Vial Administered 09/15/21 17:45 Dose 2 mg .ROUTE .STK-MED ONE Morphine Sulfate 4 mg 09/14/21 18:30 09/14/21 18:40 Morphine Sulfate 4 Mg/Ml Injection IV 09/14/21 18:31 4 mg STAT ONE Administration Morphine Sulfate Confirm 09/14/21 18:37 Morphine Sulfate 4 Mg/Ml Injection Administered 09/14/21 18:38 Dose 4 mg .ROUTE .STK-MED ONE Ondansetron HCl 4 mg 09/14/21 18:30 09/14/21 18:40 Ondansetron Hcl 4 Mg/2 Ml Vial IV 09/14/21 18:31 4 mg STAT ONE Administration Ondansetron HCl Confirm 09/14/21 18:37 Ondansetron Hcl 4 Mg/2 Ml Vial Administered 09/14/21 18:38 Dose 4 mg .ROUTE .STK-MED ONE Phenylephrine HCl Confirm 09/15/21 18:19 Phenylephrine 10 Mg/Ml Vial Administered 09/15/21 18:20 Dose 10 mg .ROUTE .STK-MED ONE Piperacillin Sod/Tazobactam Sod Confirm 09/14/21 20:35 Piperacillin/Tazobactam Sodium 3.375 Gm Vial Administered 09/14/21 20:36 Dose 3.375 gm IV .STK-MED ONE Piperacillin Sod/Tazobactam Sod Confirm 09/15/21 03:23 Piperacillin/Tazobactam Sodium 3.375 Gm Vial Administered 09/15/21 03:24 Dose 3.375 gm IV .STK-MED ONE Potassium Chloride 10 meq 09/14/21 23:44 09/15/21 00:00 Potassium Chloride 10 Meq Tablet PO 09/14/21 23:45 10 meq BID ONE Administration Pramipexole Dihydrochloride 0.5 mg 09/14/21 23:40 09/14/21 23:59 Pramipexole Di-Hcl 0.5 Mg Tab PO 09/14/21 23:41 0.5 mg HS ONE Administration Propofol Confirm 09/15/21 17:43 Propofol 10 Mg/Ml 20ml Vial Administered 09/15/21 17:44 Dose 200 mg IV .STK-MED ONE Rocuronium [place] Confirm 09/15/21 17:43 Rocuronium [place] 100 Mg/10ml Vial Administered 09/15/21 17:44 Dose 50 mg .ROUTE .STK-MED ONE Simvastatin 10 mg 09/14/21 23:42 09/15/21 00:00 Simvastatin 10 Mg Tablet PO 09/14/21 23:43 10 mg HS ONE Administration Succinylcholine Chloride Confirm 09/15/21 17:43 Succinylcholine Chloride 200mg/10 Ml Vial Administered 09/15/21 17:44 Dose 140 mg .ROUTE .STK-MED ONE Intake & Output (Last 24 hours) 09/13/21 09/14/21 09/15/21 09/16/21 11:59 11:59 11:59 11:59 Intake Total 480 0 Balance 480 0 Weight 134.6 kg Laboratory Results (Last 24 hours) 09/15/21 09/15/21 09/14/21 04:20 04:20 20:30 WBC 14.5 H RBC 5.11 Hgb 14.3 Hct 45.6 MCV 89.2 MCH 28.0 MCHC 31.4 L RDW 15.1 H Plt Count 252 MPV 11.5 H Gran % 79.7 H Eos # (Auto) 0.08 Absolute Lymphs (auto) 1.56 Absolute Monos (auto) 1.27 Lymphocytes % 10.8 L Monocytes % 8.8 Eosinophils % 0.6 Basophils % 0.1 Absolute Granulocytes 11.57 H Basophils # 0.01 Sodium 136 L Potassium 4.6 Chloride 101 Carbon Dioxide 29 Anion Gap 9.9 BUN 12 Creatinine 0.80 Estimated GFR > 60.0 Glucose 135 H Calcium 9.5 Total Bilirubin 0.80 AST 23 ALT 12 Alkaline Phosphatase 99 Serum Total Protein 7.1 Albumin 3.9 Amylase Lipase Urine Color Urine Appearance Urine pH Ur Specific [place] Urine Protein Urine Ketones Urine Blood Urine Nitrite Urine Bilirubin Urine Urobilinogen Ur Leukocyte Esterase Urine WBC (Auto) Urine RBC (Auto) U Epithel Cells (Auto) Urine Bacteria (Auto) Amorphous Crystals Urine Culture Reflexed Urine Glucose SARS-CoV-2 (PCR) NEGATIVE 09/14/21 09/14/21 09/14/21 18:57 18:57 18:35 WBC 12.1 H RBC 5.35 Hgb 15.1 Hct 46.7 MCV 87.3 MCH 28.2 MCHC 32.3 RDW 14.9 H Plt Count 269 MPV 11.7 H Gran % 74.7 H Eos # (Auto) 0.14 Absolute Lymphs (auto) 2.01 Absolute Monos (auto) 0.88 Lymphocytes % 16.6 L Monocytes % 7.3 Eosinophils % 1.2 Basophils % 0.2 Absolute Granulocytes 9.03 H Basophils # 0.02 Sodium 136 L Potassium 3.9 Chloride 100 Carbon Dioxide 24 Anion Gap 16.1 H BUN 13 Creatinine 0.82 Estimated GFR > 60.0 Glucose 126 H Calcium 10.2 Total Bilirubin 0.60 AST 24 ALT 14 Alkaline Phosphatase 119 Serum Total Protein 8.1 Albumin 4.5 Amylase 65 Lipase 57 Urine Color YELLOW Urine Appearance SLIGHTLY CLOUDY Urine pH 7.0 Ur Specific [place] 1.014 Urine Protein NEGATIVE Urine Ketones NEGATIVE Urine Blood NEGATIVE Urine Nitrite NEGATIVE Urine Bilirubin NEGATIVE Urine Urobilinogen NEGATIVE Ur Leukocyte Esterase SMALL Urine WBC (Auto) 0-2 Urine RBC (Auto) 0-2 U Epithel Cells (Auto) RARE Urine Bacteria (Auto) MODERATE Amorphous Crystals FEW Urine Culture Reflexed NO Urine Glucose NEGATIVE SARS-CoV-2 (PCR) Orders (Last 24 hours) Category Date Time Status Code Status Order ROUTINE Care 09/14/21 20:05 Active Code Status Order ROUTINE Care 09/14/21 20:09 Active IV Care Q6H Care 09/14/21 20:05 Active IV Care Q6H Care 09/14/21 20:[address] in Observation ROUTINE Care 09/14/21 20:05 Active Cutting Table Operator/Discharge Plan ROUTINE Cons 09/14/21 23:11 Active NPO Diet 09/14/21 20:07 Active ABDOMEN AND PELVIS W/0 CONTRAS [CT] Stat Exams 09/14/21 18:30 Completed GALLBLADDER [US] Stat Exams 09/15/21 10:00 Completed AMYLASE Stat Lab 09/14/21 18:57 Completed CBC W DIFF AM.LAB Lab 09/15/21 04:20 Completed CBC W DIFF Stat Lab 09/14/21 18:57 Completed CMP AM.LAB Lab 09/15/21 04:20 Completed CMP Stat Lab 09/14/21 18:57 Completed LIPASE Stat Lab 09/14/21 18:57 Completed UA W/RFX UR CULTURE Stat Lab 09/14/21 18:35 Completed Aspirin EC 81 mg [Ecotrin 81 mg] Med 09/15/21 10:00 Active 81 mg PO DAILY Benazepril HCl 10 mg [Lotensin 10 MG] Med 09/15/21 10:00 Active 10 mg PO DAILY Bumetanide 1 mg [Bumex 1 mg] Med 09/15/21 10:00 Active 1 mg PO DAILY Bupivacaine HCl 0.25% 10 ml [Sensorcaine 0.25% 10 ML Med 09/15/21 18:00 Discontinued ] 20 ml .ROUTE .STK-MED ONE Calcium Carb/Vitamin D 500 mg* [Calcium 500MG W/Vit D Med 09/15/21 10:00 Active Tablet] 1 tab PO DAILY Clindamycin 900 mg/D5w 50 ml [Clindamycin-D5w 900 mg/ Med 09/15/21 12:30 Active 50 ml] 900 mg in 50 ml IV ONCALLTOOR Fentanyl Citrate 250 Mcg/5 ml* [Sublimaze 250 Mcg/5 ml* Med 09/15/21 17:44 Discontinued ] 250 mcg .ROUTE .STK-MED ONE Hydrochlorothiazide 25 mg [hydroDIURIL 25 MG] Med 09/15/21 10:00 Active 12.5 mg PO DAILY Hydromorphone 1 mg/1Ml Inj [Hydromorphone 1 mg/ml Med 09/14/21 20:07 Active Injection] 1 mg IV Q4H PRN PRN Isosorbide Mononitrate 30 mg [Imdur 30 MG] Med 09/15/21 10:00 Active 30 mg PO DAILY Levofloxacin [Levofloxacin 500MG/100ML D5W] Med 09/15/21 12:15 Active 500 mg in 100 ml IV ONCALLTOOR Levothyroxine Sodium 75 Mcg [Synthroid 75 Mcg] Med 09/15/21 10:00 Active 75 mcg PO DAILY Midazolam HCl 2 mg/2 ml [Versed 2 MG/2 ML Injection* Med 09/15/21 17:44 Discontinued ] 2 mg .ROUTE .STK-MED ONE Morphine Sulfate 4 mg Inj Med 09/14/21 18:37 Discontinued 4 mg .ROUTE .STK-MED ONE Morphine Sulfate 4 mg Inj Med 09/14/21 18:30 Discontinued 4 mg IV STAT ONE NaCl 0.9% 100 ml Mini-Bag Plus [Sodium Chloride 100ML Med 09/14/21 20:36 Discontinued MINI-BAG PLUS] 100 ml IV UD NaCl 0.9% 100 ml Mini-Bag Plus [Sodium Chloride 100ML Med 09/15/21 03:24 Discontinued MINI-BAG PLUS] 100 ml IV UD NaCl 0.9% 1000 ml [Sodium Chloride 0.9% 1000 ML] 1,000 Med 09/14/21 18:37 Discontinued ml .ROUTE UD NaCl 0.9% 1000 ml [Sodium Chloride 0.9% 1000 ML] 1,000 Med 09/14/21 20:15 Active ml IV 100 mls/hr NaCl 0.9% 1000 ml [Sodium Chloride 0.9% 1000 ML] 1,000 Med 09/14/21 18:30 Discontinued ml IV 999 mls/hr Ondansetron HCl 4 mg/2 ml [Zofran 4 MG/2 ML VIAL] Med 09/14/21 18:37 Discontinued 4 mg .ROUTE .STK-MED ONE Ondansetron HCl 4 mg/2 ml [Zofran 4 MG/2 ML VIAL] Med 09/14/21 20:07 Active 4 mg IV Q6H PRN PRN Ondansetron HCl 4 mg/2 ml [Zofran 4 MG/2 ML VIAL] Med 09/14/21 18:30 Discontinued 4 mg IV STAT ONE PANTOPRAZOLE 40 mg Tablet [Protonix 40MG Tablet] Med 09/15/21 10:00 Active 40 mg PO DAILY Phenylephrine 10 mg/ml [Phenylephrine HCl] Med 09/15/21 18:19 Discontinued 10 mg .ROUTE .STK-MED ONE Piperacillin/Tazobactam 3.375G [Zosyn 3.375 GM Vial] Med 09/14/21 20:35 Discontinued 3.375 gm IV .STK-MED ONE Piperacillin/Tazobactam 3.375G [Zosyn 3.375 GM Vial] Med 09/15/21 03:23 Discontinued 3.375 gm IV .STK-MED ONE Piperacillin/Tazobactam 3.375G [Zosyn 3.375 GM Vial] 3. Med 09/15/21 00:00 Discontinued 375 gm NaCl 0.9% 100 ml Mini-Bag Plus [Sodium Chloride 100ML MINI-BAG PLUS] 100 ml IV Q6HT Piperacillin/Tazobactam 3.375G [Zosyn 3.375 GM Vial] 3. Med 09/15/21 12:00 Active 375 gm NaCl 0.9% 100 ml Mini-Bag Plus [Sodium Chloride 100ML MINI-BAG PLUS] 100 ml IV Q6HT Potassium Chloride 10 Meq Tab* [Klor Con 10 MEQ] Med 09/15/21 10:00 Active 10 meq PO BID Potassium Chloride 10 Meq Tab* [Klor Con 10 MEQ] Med 09/14/21 23:44 Discontinued 10 meq PO BID ONE Pramipexole Di-HCl 0.5 mg [Mirapex 0.5 MG Tablet] Med 09/15/21 22:00 Active 0.5 mg PO HS Pramipexole Di-HCl 0.5 mg [Mirapex 0.5 MG Tablet] Med 09/14/21 23:40 Discontinued 0.5 mg PO HS ONE Propofol 200 mg/20 ml [Diprivan 200 mg/20 ml] Med 09/15/21 17:43 Discontinued 200 mg IV .STK-MED ONE Ringers Solution,Lactated [Lactated Ringers] 1,000 ml Med 09/15/21 12:30 Active IV 50 mls/hr Rocuronium [place] 100 mg/10Ml [Zemuron 100 MG/10 ML] Med 09/15/21 17:43 Discontinued 50 mg .ROUTE .STK-MED ONE Simvastatin 10 mg [Zocor 10MG] Med 09/15/21 22:00 Active 10 mg PO HS Simvastatin 10 mg [Zocor 10MG] Med 09/14/21 23:42 Discontinued 10 mg PO HS ONE Succinylcholine Chloride 200Mg [Quelicin Fliptop 200 MG Med 09/15/21 17:43 Discontinued /10 ML] 140 mg .ROUTE .STK-MED ONE Smoking Cessation Education ONCE RT 09/14/21 23:11 Completed Patient Care Notes (Last 24 hours) 09/15/21 16:55 Nursing Note by Mayte Rose DR WILL DO SURGERY THIS AFTERNOON TO REMOVE GALLBLADDER. LEFT THE FLOOR AT 1643 TO GO TO SURGERY. LORNE 09-15-21 [id number] Initialized on 09/15/21 16:55 - END OF NOTE 09/15/21 12:17 Nursing Note by Rita Manzano ROUNDED WITH DR. BRIONES STATED PATIENT WILL BE GOING TO SURGERY BUT NOT ABLE TO GIVE A TIME. SURGERY WILL BE DONE BY EITHER ANSELMO OR Buzz [facility]ITEHEAD Initialized on 09/15/21 12:17 - END OF NOTE 09/15/21 12:16 Nursing Note by Mayte Rose 09-15-21 DR LEPE ROUNDED ON PATIENT. IT WILL BE HIM OR CHARLEY THAT WILL DO SURGERY TODAY OR TOMORROW. NURSE LESLIE NOTIFED AND ROUNED WITH DR. PRADHAN [id number] Initialized on 09/15/21 12:16 - END OF NOTE 09/15/21 09:29 Nursing Note by Rose Villanueva Dr called and gave orders for gallbladder US keep pt NPO. Code(s): K81.0 - ACUTE CHOLECYSTITIS (2) Hypertension Current Visit: No Status: Chronic Qualifiers: Hypertension type: primary hypertension Qualified Code(s): I10 - Essential (primary) hypertension Code(s): I10 - ESSENTIAL (PRIMARY) HYPERTENSION
[2021-09-15] MEDS ORDERED: Zofran 4 MG/2 ML VIAL ONE (19:49)
[2021-09-15] MEDS ORDERED: BRIDION 200MG/2ML IV ONE (19:49)
[2021-09-15] MEDS ORDERED: DUONEB 0.5-3 MG/3 ml Neb IH ONE ×2 (20:19→20:26)
[2021-09-15] MEDS ORDERED: Proair Hfa MDI IH ONE (20:47)
[2021-09-15] MEDS ORDERED: NON-FORMULARY ITEM (Atorvastatin Calcium [Atorvastatin Calcium] 10 MG Tablet) PO SCH (22:00)
[2021-09-15] MEDS: Zocor 10MG PO SCH (22:49)
[2021-09-15] MEDS: Mirapex 0.5 MG Tablet PO SCH (22:53)
[2021-09-16] MEDS: Zosyn 3.375 GM Vial 3.375 GM in Sodium Chloride 100ML MINI-BAG PLUS 100 ML IV SCH ×6 (00:52→23:46)
[2021-09-16] MEDS ORDERED: NORCO 5/325 MG PO PRN (07:23)
[2021-09-16] MEDS: Sodium Chloride 0.9% 1000 ML 1,000 ML IV SCH ×2 (07:39→14:23)
[2021-09-16] MEDS: hydroDIURIL 25 MG PO SCH (09:47)
[2021-09-16] MEDS: Calcium 500MG W/Vit D Tablet PO SCH (09:47)
[2021-09-16] MEDS: Protonix 40MG Tablet PO SCH (09:50)
[2021-09-16] MEDS: SYNTHROID 75 MCG PO SCH (09:50)
[2021-09-16] MEDS: Imdur 30 MG PO SCH (09:51)
[2021-09-16] MEDS: BUMEX 1 MG PO SCH (09:51)
[2021-09-16] MEDS: Klor Con 10 MEQ PO SCH ×2 (09:51→21:25)
[2021-09-16] MEDS: Lotensin 10 MG PO SCH (09:52)
--- NOTE | 2021-09-16 11:50 | OP ---
SURGERY DATE/TIME: 09/15/2021 4633 PREOPERATIVE DIAGNOSIS: Acute cholecystitis. POSTOPERATIVE DIAGNOSES: 1) Acute gangrenous cholecystitis. 2) Intra-abdominal adhesions. PROCEDURE: Difficult laparoscopic cholecystectomy taking greater than three times normal. SURGEON: Amos Chen M.D. ANESTHESIA: General. ESTIMATED BLOOD LOSS: 200. CONDITION: Patient condition stable. COMPLICATIONS: None. SPECIMEN: Gallbladder. HISTORY: The patient is a 70-year-old female who presents with a few days of abdominal pain, imaging consistent with cholecystitis. She was tender on exam. Discussed with patient risks of infection, bleeding, injury to nearby structure, hernia and she elected to proceed with surgery. FINDINGS: Very difficult cholecystectomy mostly due to her super-morbid obesity, difficult exposure. There was gangrenous cholecystitis that was not perforated but there were gangrenous spots on the gallbladder. Critical view was obtained. Additional trocar had to be used for a fan retractor. DESCRIPTION OF PROCEDURE: The patient is brought to the operating room. General anesthesia induced. She was routinely positioned, prepped and draped. Time out performed. She received her preoperative antibiotic. A 5 mm Optiview trocar placed in left upper quadrant. The abdomen insufflated. There is no injury from access. There are midline adhesions from the falciform inferiorly. Additional 5 mm trocar is placed left laterally and 11 mm super-umbilical trocar is placed after adhesiolysis. Omentum was taken down off the anterior abdominal wall with [place] LigaSure. Lysis was less than 15 minutes. Two additional 5 mm trocars had been placed in the right upper quadrant. The patient was maximally positioned even so visualization was inadequate. An 11 trocar placed in the right mid abdomen for a fan retractor. With the fan retractor and positioning there was fair exposure. The cystic duct and cystic artery dissected out with a combination of mostly blunt dissection, L-hook cautery and [place] performed. The cystic duct is clearly identified. The cystic artery clearly identified. The critical view is obtained. The exposure is difficult but the critical view is obtained. The left upper quadrant port is upsized to a 12. The white load LV stapler used to divide the divide the cystic duct high towards the neck of the gallbladder. There is a stone impacted in the neck of the gallbladder. The cystic artery is taken with the [place] LigaSure. The gallbladder is taken off of the liver bed. There is some mild ooze from the liver bed. The specimen is placed in a specimen bag and then the left upper quadrant port sites had to be enlarged to remove the specimen. It was a large, extended gangrenous gallbladder. The port is reinserted and the right upper quadrant is re-inspected. Irrigated and suctioned until clear. There is good hemostasis. The staple line is satisfactory. Fibular is place in the gallbladder fascia despite adequate hemostasis. A 10 mm ADIN drain was placed in the right upper quadrant and brought out the right mid port site. The trocar sites other than the 5 are then all closed with serial 0 Vicryl interrupted suture passer that was very difficult due to her size. The ports all removed under direct visualization except the left lateral port was used for desufflation and then removed. Skin is closed with 4-0 Vicryl sutures, Steri-Strips, sterile dressings applied. All counts were correct. The patient tolerated the procedure well. Plan is for extubation.
--- NOTE | 2021-09-16 18:24 | PCM.NOTE ---
Date and Time: 09/16/211823 Subjective Assessment: s/pcholecystectomy - Review of Systems Constitutional: No Fever, No Chills Eyes: No Symptoms Ears, Nose, & Throat: No Symptoms Respiratory: No Cough, No Short Of Breath Cardiac: No Chest Pain, No Edema, No Syncope Abdominal/Gastrointestinal: No Abdominal Pain, No Nausea, No Vomiting, No Diarrhea Genitourinary Symptoms: No Dysuria Musculoskeletal: No Back Pain, No Neck Pain Skin: No Rash Neurological: No Dizziness, No Focal Weakness, No Sensory Changes Psychological: No Symptoms Endocrine: No Symptoms Hematologic/Lymphatic: No Symptoms Immunological/Allergic: No Symptoms Objective Exam General Appearance: no apparent distress, alert Neurologic Exam: alert, oriented x 3, cooperative, normal mood/affect, nml cerebellar function, sensation nml, No motor deficits Skin Exam: normal color, warm, dry Wound Assessment: Skin/Wound Assessment Wound/Incision Assessment Start: 09/14/21 22:00 Text: Status: Active Freq: Q4H Protocol: Document 09/16/21 17:00 EUSEBIA (Rec: 09/16/21 17:03 [id number]) Wound/Incision Assessment Abdomen Wound Assessment Shift Assessment Wound Type Incision Wound Stage Non Pressure Wound Dressing Status Changed Drainage Amount Minimal Drainage Description Sanguineous Drainage Odor None/Absent Surrounding Tissue [place] Primary Dressing Non-Adherent Gauze Pads Comment pt up to rr and mid abd incision began bleeding replaced dressing rechecked after getting in bed and no bleeding noted. Right Upper Abdomen Drain Type ADIN drain Wound Photo Photo Taken No Eye Exam: PERRL, EOMI, eyes nml inspection Ears, Nose, Throat Exam: normal ENT inspection, pharynx normal, moist mucous membranes Neck Exam: normal inspection, non-tender, supple, full range of motion Respiratory Exam: normal breath sounds, lungs clear, No respiratory distress Cardiovascular Exam: regular rate/rhythm, normal heart sounds Gastrointestinal/Abdomen Exam: soft, No tenderness, No mass Extremity Exam: normal inspection, normal range of motion Back Exam: normal inspection, normal range of motion, No CVA tenderness, No vertebral tenderness Pelvic Exam: deferred Rectal Exam: deferred OBJECTIVE DATA Vital Signs: Vital Signs - 24 hr Temp Pulse Resp BP Pulse Ox 09/16/21 17:00 17 09/16/21 16:00 97.8 F 88 16 127/55 90 L 09/16/21 13:00 18 11/02/21 12:00 97.5 F 86 18 144/63 90 L 09/16/21 07:41 18 09/16/21 06:53 90 L 09/16/21 04:55 16 09/16/21 04:43 97.3 F 80 16 151/65 91 L 09/16/21 01:00 20 09/15/21 23:38 98 09/15/21 23:10 89 136/60 90 L 09/15/21 22:10 98.1 F 86 20 133/56 95 09/15/21 21:40 86 20 123/56 94 L 09/15/21 21:10 87 20 117/51 93 L 09/15/21 21:00 20 09/15/21 20:55 97.2 F 90 20 126/57 92 L 09/15/21 20:27 100 H 20 92 L Pain Assessment - Last Documented Pain Intensity 4 Pain Scale Used FLACC Intake and Output: Intake & Output 09/14/21 09/15/21 09/16/21 09/17/21 11:59 11:59 11:59 11:59 Intake Total 480 2118 620 Output Total 10 Balance 480 2118 610 Weight 134.6 kg Radiology Exams: Radiology Procedures Category Date Time Status ABDOMEN AND PELVIS W/0 CONTRAS [CT] Stat Exams 09/14/21 18:30 Completed GALLBLADDER [US] Stat Exams 09/15/21 10:00 Completed Multi-Disciplinary Progress Notes: Multi-Disciplinary Progress Notes 09/16/21 14:32 Respiratory Note by Brenda Gregory pt's o2 sat on 1lpm via nasal cannula was 87%. oxygen increased to 2lpm via nasal cannula and o2 sat increased to 90%. nurse aware. Initialized on 09/16/21 14:32 - END OF NOTE 09/16/21 11:50 Case Management Note by Miracle Holliday S/W PATIENT TODAY- SHE CONTINUES TO DENY ANY NEW NEEDS REGARDING DC. SHE PLANS TO RETURN HOME AND HER SISTER STAY WITH HER TO ASSIST HER. SHE CONTINUES TO DENY THE NEED FOR HHC AT THIS TIME Initialized on 09/16/21 11:50 - END OF NOTE Assessment/Plan (1) Acute cholecystitis Current Visit: Yes Status: Acute Assessment & Plan: Chief Complaint Diagnosis abdominal pain for 2 days Allergies Allergy/AdvReac Type Severity Reaction Status Date / Time dimenhydrinate Allergy Verified 11/30/14 21:55 [From Dramamine] Penicillins Allergy Verified 11/30/14 21:55 acetaminophen AdvReac Verified 11/30/14 21:55 [From Darvocet-N 100] propoxyphene napsylate AdvReac Verified 11/30/14 21:55 [From Darvocet-N 100] Sulfa (Sulfonamide AdvReac Verified 11/30/14 21:55 Antibiotics) Vital Signs (Last 24 hours) Temp Pulse Resp BP Pulse Ox 09/16/21 17:00 17 09/16/21 16:00 97.8 F 88 16 127/55 90 L 09/16/21 13:00 18 09/16/21 12:00 97.5 F 86 18 144/63 90 L 09/16/21 07:41 18 09/16/21 06:53 90 L 09/16/21 04:55 16 09/16/21 04:43 97.3 F 80 16 151/65 91 L 09/16/21 01:00 20 09/15/21 23:38 98 09/15/21 23:10 89 136/60 90 L 09/15/21 22:10 98.1 F 86 20 133/56 95 09/15/21 21:40 86 20 123/56 94 L 09/15/21 21:10 87 20 117/51 93 L 09/15/21 21:00 20 09/15/21 20:55 97.2 F 90 20 126/57 92 L 09/15/21 20:27 100 H 20 92 L Home Medications Medication Instructions Recorded Confirmed Last Taken Type Atorvastatin Calcium 10 mg PO HS 09/14/21 09/15/21 09/13/21 History Benazepril/Hydrochlorothiazide 1 tab PO DAILY 09/14/21 09/14/21 09/14/21 10:00 History [Benazepril-Hctz 10-12.5 mg Tab] Calcium Carbonate/Vitamin D3 1 tab PO DAILY 09/14/21 09/14/21 09/14/21 10:00 History [Vitamin D-3 400 Units Tablet] Isosorbide Mononitrate 30 mg 1 tab PO DAILY 09/14/21 09/14/21 09/14/21 10:00 History [Imdur 30 MG] Potassium Chloride 10 Meq Tab* 1 tab PO BID 09/14/21 09/14/21 09/14/21 10:00 History [Klor Con 10 MEQ] Pramipexole Di-HCl [Pramipexole 1 tab PO HS 09/14/21 09/15/21 09/13/21 History Dihydrochloride] Bumetanide 1 mg [Bumex 1 mg] 1 mg PO DAILY 09/15/21 09/15/21 09/14/21 History Hydrocodone/Acetaminophen 1 tab PO Q4HPRN PRN #24 tablet MDD 09/15/21 Unknown Rx [Hydrocodone-Acetamin 5-325 mg] 6 Hydrocodone/Acetaminophen 1 tab PO Q6HPRN PRN 7 Days #20 09/15/21 Unknown Rx [Hydrocodone-Acetamin 5-325 mg] tablet MDD 4 Current Medications Generic Name Dose Route Start Last Admin Trade Name Freq PRN Reason Stop Dose Admin Hydrocodone Bitart/Acetaminophen 1 tab 09/16/21 07:23 Hydrocodone/Apap 5/325 Mg Tablet PO 09/21/21 07:22 Q4H PRN PRN PAIN Benazepril HCl 10 mg 09/15/21 10:00 09/16/21 09:52 Benazepril Hcl 10 Mg Tablet PO 10/15/21 09:59 10 mg DAILY APPLE Administration Bumetanide 1 mg 09/15/21 10:00 09/16/21 09:51 Bumetanide 1 Mg Tablet PO 10/15/21 09:59 1 mg DAILY APPLE Administration Calcium Carbonate 1 tab 09/15/21 10:00 09/16/21 09:47 Calcium Carbonate 500 Mg/Vitamin D 1 Tab Tablet PO 10/15/21 09:59 1 tab DAILY APPLE Administration Hydrochlorothiazide 12.5 mg 09/15/21 10:00 09/16/21 09:47 Hydrochlorothiazide 25 Mg Tablet PO 10/15/21 09:59 12.5 mg DAILY APPLE Administration Hydromorphone HCl 1 mg 09/14/21 20:07 09/15/21 00:00 Hydromorphone 1 Mg/1ml Inj 1 Mg/Ml Syringe IV 09/19/21 20:06 1 mg Q4H PRN PRN Administration PAIN Sodium Chloride 1,000 mls @ 100 mls/hr 09/14/21 20:15 09/16/21 14:23 Sodium Chloride 0.9% 1000 Ml IV 10/14/21 20:14 Not Given .Q10H APPLE Piperacillin Sod/Tazobactam 100 mls @ 200 mls/hr 09/15/21 12:00 09/16/21 17:46 Sod 3.375 gm/ Sodium Chloride IV 09/18/21 11:59 200 mls/hr Q6HT PAPLE Administration Isosorbide Mononitrate 30 mg 09/15/21 10:00 09/16/21 09:51 Isosorbide Mononitrate 30 Mg Tab PO 10/15/21 09:59 30 mg DAILY APPLE Administration Levothyroxine Sodium 75 mcg 09/15/21 10:00 09/16/21 09:50 Levothyroxine Sodium 75 Mcg Tablet PO 10/15/21 09:59 75 mcg DAILY APPLE Administration Ondansetron HCl 4 mg 09/14/21 20:07 Ondansetron Hcl 4 Mg/2 Ml Vial IV 10/14/21 20:06 Q6H PRN PRN NAUSEA/VOMITING Pantoprazole Sodium 40 mg 09/15/21 10:00 09/16/21 09:50 Protonix (Pantoprazole) 40 Mg Tablet PO 10/15/21 09:59 40 mg DAILY APPLE Administration Potassium Chloride 10 meq 09/15/21 10:00 09/16/21 09:51 Potassium Chloride 10 Meq Tablet PO 10/15/21 09:59 10 meq BID APPLE Administration Pramipexole Dihydrochloride 0.5 mg 09/15/21 22:00 09/15/21 22:53 Pramipexole Di-Hcl 0.5 Mg Tab PO 10/15/21 21:59 0.5 mg HS APPLE Administration Simvastatin 10 mg 09/15/21 22:00 09/15/21 22:49 Simvastatin 10 Mg Tablet PO 10/15/21 21:59 10 mg HS APPLE Administration Discontinued Medications Generic Name Dose Route Start Last Admin Trade Name Freq PRN Reason Stop Dose Admin Albuterol Sulfate Confirm 09/15/21 20:47 Proair Hfa Mdi 8.5 Gm Administered 09/15/21 20:48 Dose 8.5 gm IH .STK-MED ONE Albuterol/Ipratropium Confirm 09/15/21 20:19 Ipratropium/Albuterol Sulfate 3 Ml Ampul.Neb Administered 09/15/21 20:20 Dose 3 ml IH .STK-MED ONE Albuterol/Ipratropium 3 ml 09/15/21 20:26 09/15/21 20:26 Ipratropium/Albuterol Sulfate 3 Ml Ampul.Neb IH 09/15/21 20:27 3 ml STAT ONE Administration Aspirin 81 mg 09/15/21 10:00 09/15/21 10:55 Aspirin 81 Mg Tablet.Ec PO 10/15/21 09:59 Not Given DAILY APPLE Bupivacaine HCl Confirm 09/15/21 18:00 Bupivacaine Hcl 2.5 Mg/Ml 10 Ml Administered 09/15/21 18:01 Dose 20 ml .ROUTE .STK-MED ONE Fentanyl Citrate Confirm 09/15/21 17:44 Fentanyl Citrate 250 Mcg/5 Ml Ampul Administered 09/15/21 17:45 Dose 250 mcg .ROUTE .STK-MED ONE Sodium Chloride 1,000 mls @ 999 mls/hr 09/14/21 18:30 09/14/21 18:40 Sodium Chloride 0.9% 1000 Ml IV 09/14/21 19:30 999 mls/hr .Q1H1M STA Administration Sodium Chloride Confirm 09/14/21 18:37 Sodium Chloride 0.9% 1000 Ml Administered 09/14/21 18:38 Dose 1,000 mls @ ud .ROUTE .STK-MED ONE Piperacillin Sod/Tazobactam 100 mls @ 200 mls/hr 09/15/21 00:00 09/15/21 06:14 Sod 3.375 gm/ Sodium Chloride IV 09/18/21 00:00 Not Given Q6HT APPLE Sodium Chloride Confirm 09/14/21 20:36 Sodium Chloride 100ml Mini-Bag Plus Administered 09/14/21 20:37 Dose 100 mls @ ud IV .STK-MED ONE Sodium Chloride Confirm 09/15/21 03:24 Sodium Chloride 100ml Mini-Bag Plus Administered 09/15/21 03:25 Dose 100 mls @ ud IV .STK-MED ONE Lactated Ringer's 1,000 mls @ 50 mls/hr 09/15/21 12:30 09/15/21 22:25 Lactated Ringers IV 09/16/21 08:29 Not Given .Q20H APPLE Clindamycin HCl/Dextrose 900 mg in 50 mls @ 100 mls/hr 09/15/21 12:30 Clindamycin-D5w 900 Mg/50 Ml IV 09/15/21 20:00 ONCALLTOOR APPLE Levofloxacin/Dextrose 500 mg in 100 mls @ 100 mls/hr 09/15/21 12:15 Levofloxacin 500mg/100ml D5w IV 09/15/21 20:00 ONCALLTOOR APPLE Midazolam HCl Confirm 09/15/21 17:44 Midazolam Hcl 2 Mg/2 Ml Vial Administered 09/15/21 17:45 Dose 2 mg .ROUTE .STK-MED ONE Morphine Sulfate 4 mg 09/14/21 18:30 09/14/21 18:40 Morphine Sulfate 4 Mg/Ml Injection IV 09/14/21 18:31 4 mg STAT ONE Administration Morphine Sulfate Confirm 09/14/21 18:37 Morphine Sulfate 4 Mg/Ml Injection Administered 09/14/21 18:38 Dose 4 mg .ROUTE .STK-MED ONE Ondansetron HCl 4 mg 09/14/21 18:30 09/14/21 18:40 Ondansetron Hcl 4 Mg/2 Ml Vial IV 09/14/21 18:31 4 mg STAT ONE Administration Ondansetron HCl Confirm 09/14/21 18:37 Ondansetron Hcl 4 Mg/2 Ml Vial Administered 09/14/21 18:38 Dose 4 mg .ROUTE .STK-MED ONE Ondansetron HCl Confirm 09/15/21 19:49 Ondansetron Hcl 4 Mg/2 Ml Vial Administered 09/15/21 19:50 Dose 4 mg .ROUTE .STK-MED ONE Phenylephrine HCl Confirm 09/15/21 18:19 Phenylephrine 10 Mg/Ml Vial Administered 09/15/21 18:20 Dose 10 mg .ROUTE .STK-MED ONE Piperacillin Sod/Tazobactam Sod Confirm 09/14/21 20:35 Piperacillin/Tazobactam Sodium 3.375 Gm Vial Administered 09/14/21 20:36 Dose 3.375 gm IV .STK-MED ONE Piperacillin Sod/Tazobactam Sod Confirm 09/15/21 03:23 Piperacillin/Tazobactam Sodium 3.375 Gm Vial Administered 09/15/21 03:24 Dose 3.375 gm IV .STK-MED ONE Potassium Chloride 10 meq 09/14/21 23:44 09/15/21 00:00 Potassium Chloride 10 Meq Tablet PO 09/14/21 23:45 10 meq BID ONE Administration Pramipexole Dihydrochloride 0.5 mg 09/14/21 23:40 09/14/21 23:59 Pramipexole Di-Hcl 0.5 Mg Tab PO 09/14/21 23:41 0.5 mg HS ONE Administration Propofol Confirm 09/15/21 17:43 Propofol 10 Mg/Ml 20ml Vial Administered 09/15/21 17:44 Dose 200 mg IV .STK-MED ONE Rocuronium [place] Confirm 09/15/21 17:43 Rocuronium [place] 100 Mg/10ml Vial Administered 09/15/21 17:44 Dose 50 mg .ROUTE .STK-MED ONE Simvastatin 10 mg 09/14/21 23:42 09/15/21 00:00 Simvastatin 10 Mg Tablet PO 09/14/21 23:43 10 mg HS ONE Administration Succinylcholine Chloride Confirm 09/15/21 17:43 Succinylcholine Chloride 200mg/10 Ml Vial Administered 09/15/21 17:44 Dose 140 mg .ROUTE .STK-MED ONE Sugammadex Sodium Confirm 09/15/21 19:49 Sugammadex Sodium 200 Mg/2 Ml Vial Administered 09/15/21 19:50 Dose 200 mg IV .STK-MED ONE Intake & Output (Last 24 hours) 09/14/21 09/15/21 09/16/21 09/17/21 11:59 11:59 11:59 11:59 Intake Total 480 2118 620 Output Total 10 Balance 480 2118 610 Weight 134.6 kg Orders (Last 24 hours) Category Date Time Status Ambulate Patient Q4H Care 09/15/21 21:26 Active House Regular Diet Diet 09/16/21 Dinner Active Surgical Pathology Routine Lab 09/15/21 19:14 Received Albuterol Sulfate Mdi [Proair Hfa MDI] Med 09/15/21 20:47 Discontinued 8.5 gm IH .STK-MED ONE Albuterol/Ipratropium 3ml Neb* [DUONEB 0.5-3 MG/3 ml Med 09/15/21 20:19 Discontinued Neb] 3 ml IH .STK-MED ONE Albuterol/Ipratropium 3ml Neb* [DUONEB 0.5-3 MG/3 ml Med 09/15/21 20:26 Discontinued Neb] 3 ml IH STAT ONE Bupivacaine HCl 0.25% 10 ml [Sensorcaine 0.25% 10 ML Med 09/15/21 18:00 Discontinued ] 20 ml .ROUTE .STK-MED ONE Fentanyl Citrate 250 Mcg/5 ml* [Sublimaze 250 Mcg/5 ml* Med 09/15/21 17:44 Discontinued ] 250 mcg .ROUTE .STK-MED ONE Hydrocodone/APAP 5/325 [[place] 5/325 mg] Med 09/16/21 07:23 Active 1 tab PO Q4H PRN PRN Midazolam HCl 2 mg/2 ml [Versed 2 MG/2 ML Injection* Med 09/15/21 17:44 Discontinued ] 2 mg .ROUTE .STK-MED ONE Ondansetron HCl 4 mg/2 ml [Zofran 4 MG/2 ML VIAL] Med 09/15/21 19:49 Discontinued 4 mg .ROUTE .STK-MED ONE Phenylephrine 10 mg/ml [Phenylephrine HCl] Med 09/15/21 18:19 Discontinued 10 mg .ROUTE .STK-MED ONE Pramipexole Di-HCl 0.5 mg [Mirapex 0.5 MG Tablet] Med 09/15/21 22:00 Active 0.5 mg PO HS Propofol 200 mg/20 ml [Diprivan 200 mg/20 ml] Med 09/15/21 17:43 Discontinued 200 mg IV .STK-MED ONE Rocuronium [place] 100 mg/10Ml [Zemuron 100 MG/10 ML] Med 09/15/21 17:43 Discontinued 50 mg .ROUTE .STK-MED ONE Simvastatin 10 mg [Zocor 10MG] Med 09/15/21 22:00 Active 10 mg PO HS Succinylcholine Chloride 200Mg [Quelicin Fliptop 200 MG Med 09/15/21 17:43 Discontinued /10 ML] 140 mg .ROUTE .STK-MED ONE Sugammadex Sodium [[place] 200Mg/2Ml] Med 09/15/21 19:49 Discontinued 200 mg IV .STK-MED ONE Incentive Spirometry TID RT 09/16/21 07:00 Active Oxygen Nasal Cannula 3 lpm RT 09/15/21 23:36 Active Pulse Oximetry .spot check RT 09/15/21 23:36 Active Respiratory Therapy Assessment DAILY RT 09/15/21 20:27 Completed Patient Care Notes (Last 24 hours) 09/16/21 14:32 Respiratory Note by Brenda Gregory pt's o2 sat on 1lpm via nasal cannula was 87%. oxygen increased to 2lpm via nasal cannula and o2 sat increased to 90%. nurse aware. Initialized on 09/16/21 14:32 - END OF NOTE 09/16/21 11:50 Case Management Note by Miracle Holliday S/W PATIENT TODAY- SHE CONTINUES TO DENY ANY NEW NEEDS REGARDING DC. SHE PLANS TO RETURN HOME AND HER SISTER STAY WITH HER TO ASSIST HER. SHE CONTINUES TO DENY THE NEED FOR HHC AT THIS TIME Initialized on 09/16/21 11:50 - END OF NOTE 09/16/21 09:39 TECHNICAL SERVICE ENGINEER Note by Agnes Smallwood Walked patient and she went to the bathroom and is up in the chair patient still on oxygen 2L she is drinking coffee Initialized on 09/16/21 09:39 - END OF NOTE 09/15/21 21:06 Nursing Note by Brenda Jack pt back to floor from surgery at 2054. Initialized on 09/15/21 21:06 - END OF NOTE 09/15/21 19:59 Nursing Note by Brenda Jack pt still in surgery upon arrival to shift. Initialized on 09/15/21 19:59 - END OF NOTE Code(s): K81.0 - ACUTE CHOLECYSTITIS (2) Hypertension Current Visit: No Status: Chronic Qualifiers: Hypertension type: primary hypertension Qualified Code(s): I10 - Essential (primary) hypertension Code(s): I10 - ESSENTIAL (PRIMARY) HYPERTENSION
[2021-09-16] MEDS: Mirapex 0.5 MG Tablet PO SCH (21:25)
[2021-09-16] MEDS: Zocor 10MG PO SCH (21:25)
[2021-09-17] MEDS: Zosyn 3.375 GM Vial 3.375 GM in Sodium Chloride 100ML MINI-BAG PLUS 100 ML IV SCH (05:54)
[2021-09-17 08:32] VITALS: BP 110/56; PULSE 85; O2SAT 92
[2021-09-17] MEDS: hydroDIURIL 25 MG PO SCH (09:09)
[2021-09-17] MEDS: Imdur 30 MG PO SCH (09:09)
[2021-09-17] MEDS: Calcium 500MG W/Vit D Tablet PO SCH (09:09)
[2021-09-17] MEDS: BUMEX 1 MG PO SCH (09:09)
[2021-09-17] MEDS: Protonix 40MG Tablet PO SCH (09:09)
[2021-09-17] MEDS: SYNTHROID 75 MCG PO SCH (09:10)
[2021-09-17] MEDS: Klor Con 10 MEQ PO SCH (09:10)
[2021-09-17] MEDS: Lotensin 10 MG PO SCH (09:10)
--- NOTE | 2021-09-18 07:37 | PCM.DS ---
Discharge Summary Date of Admission: 09/14/21 22:16 Admitting Physician: INDU PAGE Primary Care Provider: OSMAR LEE Allergies Allergies dimenhydrinate [From Dramamine] Allergy (Verified 11/30/14 21:55) Penicillins Allergy (Verified 11/30/14 21:55) acetaminophen [From Darvocet-N 100] Adverse Reaction (Verified 11/30/14 21:55) propoxyphene napsylate [From Darvocet-N 100] Adverse Reaction (Verified 11/30/14 21:55) Sulfa (Sulfonamide Antibiotics) Adverse Reaction (Verified 11/30/14 21:55) Hospital Summary - Hospital Course Hospital Course: Chief Complaint Diagnosis abdominal pain for 2 days Allergies Allergy/AdvReac Type Severity Reaction Status Date / Time dimenhydrinate Allergy Verified 11/30/14 21:55 [From Dramamine] Penicillins Allergy Verified 11/30/14 21:55 acetaminophen AdvReac Verified 11/30/14 21:55 [From Darvocet-N 100] propoxyphene napsylate AdvReac Verified 11/30/14 21:55 [From Darvocet-N 100] Sulfa (Sulfonamide AdvReac Verified 11/30/14 21:55 Antibiotics) Vital Signs (Last 24 hours) Temp Pulse Resp BP Pulse Ox 09/17/21 08:00 97.7 F 85 18 110/56 92 L 09/17/21 07:38 90 L Home Medications Medication Instructions Recorded Confirmed Last Taken Type Atorvastatin Calcium 10 mg PO HS 09/14/21 09/15/21 09/13/21 History Benazepril/Hydrochlorothiazide 1 tab PO DAILY 09/14/21 09/14/21 09/14/21 10:00 History [Benazepril-Hctz 10-12.5 mg Tab] Calcium Carbonate/Vitamin D3 1 tab PO DAILY 09/14/21 09/14/21 09/14/21 10:00 History [Vitamin D-3 400 Units Tablet] Isosorbide Mononitrate 30 mg 1 tab PO DAILY 09/14/21 09/14/21 09/14/21 10:00 History [Imdur 30 MG] Potassium Chloride 10 Meq Tab* 1 tab PO BID 09/14/21 09/14/2121 10:00 History [Klor Con 10 MEQ] Pramipexole Di-HCl [Pramipexole 1 tab PO HS 09/14/21 09/15/21 09/13/21 History Dihydrochloride] Bumetanide 1 mg [Bumex 1 mg] 1 mg PO DAILY 09/15/21 09/15/21 09/14/21 History Hydrocodone/Acetaminophen 1 tab PO Q4HPRN PRN #24 tablet MDD 09/15/21 Unknown Rx [Hydrocodone-Acetamin 5-325 mg] 6 Hydrocodone/Acetaminophen 1 tab PO Q6HPRN PRN 7 Days #20 09/15/21 Unknown Rx [Hydrocodone-Acetamin 5-325 mg] tablet MDD 4 Current Medications Discontinued Medications Generic Name Dose Route Start Last Admin Trade Name Freq PRN Reason Stop Dose Admin Hydrocodone Bitart/Acetaminophen 1 tab 09/16/21 07:23 09/16/21 19:44 Hydrocodone/Apap 5/325 Mg Tablet PO 09/21/21 07:22 1 tab Q4H PRN PRN Administration PAIN Albuterol Sulfate Confirm 09/15/21 20:47 Proair Hfa Mdi 8.5 Gm Administered 09/15/21 20:48 Dose 8.5 gm IH .STK-MED ONE Albuterol/Ipratropium Confirm 09/15/21 20:19 Ipratropium/Albuterol Sulfate 3 Ml Ampul.Neb Administered 09/15/21 20:20 Dose 3 ml IH .STK-MED ONE Albuterol/Ipratropium 3 ml 09/15/21 20:26 09/15/21 20:26 Ipratropium/Albuterol Sulfate 3 Ml Ampul.Neb IH 09/15/21 20:27 3 ml STAT ONE Administration Aspirin 81 mg 09/15/21 10:00 09/15/21 10:55 Aspirin 81 Mg Tablet.Ec PO 10/15/21 09:59 Not Given DAILY APPLE Benazepril HCl 10 mg 09/15/21 10:00 09/17/21 09:10 Benazepril Hcl 10 Mg Tablet PO 10/15/21 09:59 10 mg DAILY APPLE Administration Bumetanide 1 mg 09/15/21 10:00 09/17/21 09:09 Bumetanide 1 Mg Tablet PO 10/15/21 09:59 1 mg DAILY APPLE Administration Bupivacaine HCl Confirm 09/15/21 18:00 Bupivacaine Hcl 2.5 Mg/Ml 10 Ml Administered 09/15/21 18:01 Dose 20 ml .ROUTE .STK-MED ONE Calcium Carbonate 1 tab 09/15/21 10:00 09/17/21 09:09 Calcium Carbonate 500 Mg/Vitamin D 1 Tab Tablet PO 10/15/21 09:59 1 tab DAILY APPLE Administration Fentanyl Citrate Confirm 09/15/21 17:44 Fentanyl Citrate 250 Mcg/5 Ml Ampul Administered 09/15/21 17:45 Dose 250 mcg .ROUTE .STK-MED ONE Hydrochlorothiazide 12.5 mg 09/15/21 10:00 09/17/21 09:09 Hydrochlorothiazide 25 Mg Tablet PO 10/15/21 09:59 12.5 mg DAILY APPLE Administration Hydromorphone HCl 1 mg 09/14/21 20:07 09/15/21 00:00 Hydromorphone 1 Mg/1ml Inj 1 Mg/Ml Syringe IV 09/19/21 20:06 1 mg Q4H PRN PRN Administration PAIN Sodium Chloride 1,000 mls @ 999 mls/hr 09/14/21 18:30 09/14/21 18:40 Sodium Chloride 0.9% 1000 Ml IV 09/14/21 19:30 999 mls/hr .Q1H1M STA Administration Sodium Chloride Confirm 09/14/21 18:37 Sodium Chloride 0.9% 1000 Ml Administered 09/14/21 18:38 Dose 1,000 mls @ ud .ROUTE .STK-MED ONE Sodium Chloride 1,000 mls @ 100 mls/hr 09/14/21 20:15 09/16/21 14:23 Sodium Chloride 0.9% 1000 Ml IV 10/14/21 20:14 Not Given .Q10H APPLE Piperacillin Sod/Tazobactam 100 mls @ 200 mls/hr 09/15/21 00:00 09/15/21 06:14 Sod 3.375 gm/ Sodium Chloride IV 09/18/21 00:00 Not Given Q6HT APPLE Sodium Chloride Confirm 09/14/21 20:36 Sodium Chloride 100ml Mini-Bag Plus Administered 09/14/21 20:37 Dose 100 mls @ ud IV .STK-MED ONE Sodium Chloride Confirm 09/15/21 03:24 Sodium Chloride 100ml Mini-Bag Plus Administered 09/15/21 03:25 Dose 100 mls @ ud IV .STK-MED ONE Piperacillin Sod/Tazobactam 100 mls @ 200 mls/hr 09/15/21 12:00 09/17/21 05:54 Sod 3.375 gm/ Sodium Chloride IV 09/18/21 11:59 200 mls/hr Q6HT APPLE Administration Lactated Ringer's 1,000 mls @ 50 mls/hr 09/15/21 12:30 09/15/21 22:25 Lactated Ringers IV 09/16/21 08:29 Not Given .Q20H APPLE Clindamycin HCl/Dextrose 900 mg in 50 mls @ 100 mls/hr 09/15/21 12:30 Clindamycin-D5w 900 Mg/50 Ml IV 09/15/21 20:00 ONCALLTOOR APPLE Levofloxacin/Dextrose 500 mg in 100 mls @ 100 mls/hr 09/15/21 12:15 Levofloxacin 500mg/100ml D5w IV 09/15/21 20:00 ONCALLTOOR APPLE Isosorbide Mononitrate 30 mg 09/15/21 10:00 09/17/21 09:09 Isosorbide Mononitrate 30 Mg Tab PO 10/15/21 09:59 30 mg DAILY APPLE Administration Levothyroxine Sodium 75 mcg 09/15/21 10:00 09/17/21 09:10 Levothyroxine Sodium 75 Mcg Tablet PO 10/15/21 09:59 75 mcg DAILY APPLE Administration Midazolam HCl Confirm 09/15/21 17:44 Midazolam Hcl 2 Mg/2 Ml Vial Administered 09/15/21 17:45 Dose 2 mg .ROUTE .STK-MED ONE Morphine Sulfate 4 mg 09/14/21 18:30 09/14/21 18:40 Morphine Sulfate 4 Mg/Ml Injection IV 09/14/21 18:31 4 mg STAT ONE Administration Morphine Sulfate Confirm 09/14/21 18:37 Morphine Sulfate 4 Mg/Ml Injection Administered 09/14/21 18:38 Dose 4 mg .ROUTE .STK-MED ONE Ondansetron HCl 4 mg 09/14/21 18:30 09/14/21 18:40 Ondansetron Hcl 4 Mg/2 Ml Vial IV 09/14/21 18:31 4 mg STAT ONE Administration Ondansetron HCl Confirm 09/14/21 18:37 Ondansetron Hcl 4 Mg/2 Ml Vial Administered 09/14/21 18:38 Dose 4 mg .ROUTE .STK-MED ONE Ondansetron HCl 4 mg 09/14/21 20:07 Ondansetron Hcl 4 Mg/2 Ml Vial IV 10/14/21 20:06 Q6H PRN PRN NAUSEA/VOMITING Ondansetron HCl Confirm 09/15/21 19:49 Ondansetron Hcl 4 Mg/2 Ml Vial Administered 09/15/21 19:50 Dose 4 mg .ROUTE .STK-MED ONE Pantoprazole Sodium 40 mg 09/15/21 10:00 09/17/21 09:09 Protonix (Pantoprazole) 40 Mg Tablet PO 10/15/21 09:59 40 mg DAILY APPLE Administration Phenylephrine HCl Confirm 09/15/21 18:19 Phenylephrine 10 Mg/Ml Vial Administered 09/15/21 18:20 Dose 10 mg .ROUTE .STK-MED ONE Piperacillin Sod/Tazobactam Sod Confirm 09/14/21 20:35 Piperacillin/Tazobactam Sodium 3.375 Gm Vial Administered 09/14/21 20:36 Dose 3.375 gm IV .STK-MED ONE Piperacillin Sod/Tazobactam Sod Confirm 09/15/21 03:23 Piperacillin/Tazobactam Sodium 3.375 Gm Vial Administered 09/15/21 03:24 Dose 3.375 gm IV .STK-MED ONE Potassium Chloride 10 meq 09/14/21 23:44 09/15/21 00:00 Potassium Chloride 10 Meq Tablet PO 09/14/21 23:45 10 meq BID ONE Administration Potassium Chloride 10 meq 09/15/21 10:00 09/17/21 09:10 Potassium Chloride 10 Meq Tablet PO 10/15/21 09:59 10 meq BID APPLE Administration Pramipexole Dihydrochloride 0.5 mg 09/14/21 23:40 09/14/21 23:59 Pramipexole Di-Hcl 0.5 Mg Tab PO 09/14/21 23:41 0.5 mg HS ONE Administration Pramipexole Dihydrochloride 0.5 mg 09/15/21 22:00 11/02/21 21:25 Pramipexole Di-Hcl 0.5 Mg Tab PO 10/15/21 21:59 0.5 mg HS APPLE Administration Propofol Confirm 09/15/21 17:43 Propofol 10 Mg/Ml 20ml Vial Administered 09/15/21 17:44 Dose 200 mg IV .STK-MED ONE Rocuronium Tate Confirm 09/15/21 17:43 Rocuronium Tate 100 Mg/10ml Vial Administered 09/15/21 17:44 Dose 50 mg .ROUTE .STK-MED ONE Simvastatin 10 mg 09/14/21 23:42 09/15/21 00:00 Simvastatin 10 Mg Tablet PO 09/14/21 23:43 10 mg HS ONE Administration Simvastatin 10 mg 09/15/21 22:00 09/16/21 21:25 Simvastatin 10 Mg Tablet PO 10/15/21 21:59 10 mg HS APPLE Administration Succinylcholine Chloride Confirm 09/15/21 17:43 Succinylcholine Chloride 200mg/10 Ml Vial Administered 09/15/21 17:44 Dose 140 mg .ROUTE .STK-MED ONE Sugammadex Sodium Confirm 09/15/21 19:49 Sugammadex Sodium 200 Mg/2 Ml Vial Administered 09/15/21 19:50 Dose 200 mg IV .STK-MED ONE Intake & Output (Last 24 hours) 09/15/21 09/16/21 09/17/21 09/18/21 11:59 11:59 11:59 11:59 Intake Total 480 2118 1580 Output Total 30 Balance 480 2118 1550 Weight 134.6 kg Patient Care Notes (Last 24 hours) 09/17/21 09:46 Case Management Note by Miracle Holliday S/W PATIENT SHE CONTINUES TO DENY ANY NEW NEEDS REGARDING DC AT THIS TIME. SHE PLANS TO RETURN HOME WITH HER SISTER TO STAY WITH HER AND ASSIST HER Initialized on 09/17/21 09:46 - END OF NOTE - Vitals & Intake/Output Vital Signs: Vital Signs Temperature 97.7 F 09/17/21 08:00 Pulse Rate 85 09/17/21 08:00 Respiratory Rate 18 09/17/21 08:00 Blood Pressure 110/56 09/17/21 08:00 O2 Sat by Pulse Oximetry 92 L 09/17/21 08:00 Intake & Output: Intake & Output 09/15/21 09/16/21 09/17/21 09/18/21 11:59 11:59 11:59 11:59 Intake Total 480 2111 1580 Output Total 30 Balance 480 2113 1550 Weight 134.6 kg - Lab Result Diagrams: 09/15/21 04:20 09/15/21 04:20 - Procedures and Test Procedures and Tests throughout Hospitalization: Therapy Orders & Screens 09/14/21 23:11 Smoking Cessation Education ONCE Comment: Diagnosis: Acute cholecystitis Smoking Status: Current every day smoker How long have you smoked: 30 Approximately how many cigarettes per day: 10 Do you dip or chew tobacco: No 09/15/21 20:27 Respiratory Therapy Assessment DAILY Comment: Diagnosis: abdominal pain for 2 days 09/15/21 23:36 Oxygen Nasal Cannula 3 lpm Comment: Diagnosis: abdominal pain for 2 days 09/16/21 07:00 Incentive Spirometry TID Comment: Diagnosis: abdominal pain for 2 days Discharge Exam General Appearance: no apparent distress, alert Neurologic Exam: alert, oriented x 3, cooperative, normal mood/affect, nml cerebellar function, sensation nml, No motor deficits Eye Exam: PERRL, EOMI, eyes nml inspection Ears, Nose, Throat Exam: normal ENT inspection, pharynx normal, moist mucous membranes Neck Exam: normal inspection, non-tender, supple, full range of motion Respiratory Exam: normal breath sounds, lungs clear, No respiratory distress Cardiovascular Exam: regular rate/rhythm, normal heart sounds Gastrointestinal/Abdomen Exam: soft, No tenderness, No mass Pelvic Exam: deferred Rectal Exam: deferred Back Exam: normal inspection, normal range of motion, No CVA tenderness, No vertebral tenderness Extremity Exam: normal inspection, normal range of motion Skin Exam: normal color, warm, dry Final Diagnosis/Problem List - Final Discharge Diagnosis/Problem (1) Acute cholecystitis Status: Acute Priority: High Assessment & Plan: Last Vital Signs Temp 97.7 F 09/17/21 08:00 Pulse 85 09/17/21 08:00 Resp 18 09/17/21 08:00 BP 110/56 09/17/21 08:00 Pulse Ox 92 L 09/17/21 08:00 Allergies dimenhydrinate [From Dramamine] Allergy (Verified 11/30/14 21:55) Penicillins Allergy (Verified 11/30/14 21:55) acetaminophen [From Darvocet-N 100] Adverse Reaction (Verified 11/30/14 21:55) propoxyphene napsylate [From Darvocet-N 100] Adverse Reaction (Verified 11/30/14 21:55) Sulfa (Sulfonamide Antibiotics) Adverse Reaction (Verified 11/30/14 21:55) Intake & Output 09/17/21 09/18/21 11:59 11:59 Intake Total 1580 Output Total 30 Balance 1550 Chief Complaint Diagnosis abdominal pain for 2 days Allergies Allergy/AdvReac Type Severity Reaction Status Date / Time dimenhydrinate Allergy Verified 11/30/14 21:55 [From Dramamine] Penicillins Allergy Verified 11/30/14 21:55 acetaminophen AdvReac Verified 11/30/14 21:55 [From Darvocet-N 100] propoxyphene napsylate AdvReac Verified 11/30/14 21:55 [From Darvocet-N 100] Sulfa (Sulfonamide AdvReac Verified 11/30/14 21:55 Antibiotics) Vital Signs (Last 24 hours) Temp Pulse Resp BP Pulse Ox 09/17/21 08:00 97.7 F 85 18 110/56 92 L 09/17/21 07:38 90 L Home Medications Medication Instructions Recorded Confirmed Last Taken Type Atorvastatin Calcium 10 mg PO HS 09/14/21 09/15/21 09/13/21 History Benazepril/Hydrochlorothiazide 1 tab PO DAILY 09/14/21 09/14/21 09/14/21 10:00 History [Benazepril-Hctz 10-12.5 mg Tab] Calcium Carbonate/Vitamin D3 1 tab PO DAILY 09/14/21 09/14/21 09/14/21 10:00 H istory [Vitamin D-3 400 Units Tablet] Isosorbide Mononitrate 30 mg 1 tab PO DAILY 09/14/21 09/14/21 09/14/21 10:00 History [Imdur 30 MG] Potassium Chloride 10 Meq Tab* 1 tab PO BID 09/14/21 09/14/21 09/14/21 10:00 History [Klor Con 10 MEQ] Pramipexole Di-HCl [Pramipexole 1 tab PO HS 09/14/21 09/15/21 09/13/21 History Dihydrochloride] Bumetanide 1 mg [Bumex 1 mg] 1 mg PO DAILY 09/15/21 09/15/21 09/14/21 History Hydrocodone/Acetaminophen 1 tab PO Q4HPRN PRN #24 tablet MDD 09/15/21 Unknown Rx [Hydrocodone-Acetamin 5-325 mg] 6 Hydrocodone/Acetaminophen 1 tab PO Q6HPRN PRN 7 Days #20 09/15/21 Unknown Rx [Hydrocodone-Acetamin 5-325 mg] tablet MDD 4 Current Medications Discontinued Medications Generic Name Dose Route Start Last Admin Trade Name Freq PRN Reason Stop Dose Admin Hydrocodone Bitart/Acetaminophen 1 tab 09/16/21 07:23 09/16/21 19:44 Hydrocodone/Apap 5/325 Mg Tablet PO 09/21/21 07:22 1 tab Q4H PRN PRN Administration PAIN Albuterol Sulfate Confirm 09/15/21 20:47 Proair Hfa Mdi 8.5 Gm Administered 09/15/21 20:48 Dose 8.5 gm IH .STK-MED ONE Albuterol/Ipratropium Confirm 09/15/21 20:19 Ipratropium/Albuterol Sulfate 3 Ml Ampul.Neb Administered 09/15/21 20:20 Dose 3 ml IH .STK-MED ONE Albuterol/Ipratropium 3 ml 09/15/21 20:26 09/15/21 20:26 Ipratropium/Albuterol Sulfate 3 Ml Ampul.Neb IH 09/15/21 20:27 3 ml STAT ONE Administration Aspirin 81 mg 09/15/21 10:00 09/15/21 10:55 Aspirin 81 Mg Tablet.Ec PO 10/15/21 09:59 Not Given DAILY APPLE Benazepril HCl 10 mg 09/15/21 10:00 09/17/21 09:10 Benazepril Hcl 10 Mg Tablet PO 10/15/21 09:59 10 mg DAILY APPLE Administration Bumetanide 1 mg 09/15/21 10:00 09/17/21 09:09 Bumetanide 1 Mg Tablet PO 10/15/21 09:59 1 mg DAILY APPLE Administration Bupivacaine HCl Confirm 09/15/21 18:00 Bupivacaine Hcl 2.5 Mg/Ml 10 Ml Administered 09/15/21 18:01 Dose 20 ml .ROUTE .STK-MED ONE Calcium Carbonate 1 tab 09/15/21 10:00 09/17/21 09:09 Calcium Carbonate 500 Mg/Vitamin D 1 Tab Tablet PO 10/15/21 09:59 1 tab DAILY APPLE Administration Fentanyl Citrate Confirm 09/15/21 17:44 Fentanyl Citrate 250 Mcg/5 Ml Ampul Administered 09/15/21 17:45 Dose 250 mcg .ROUTE .STK-MED ONE Hydrochlorothiazide 12.5 mg 09/15/21 10:00 09/17/21 09:09 Hydrochlorothiazide 25 Mg Tablet PO 10/15/21 09:59 12.5 mg DAILY APPLE Administration Hydromorphone HCl 1 mg 09/14/21 20:07 09/15/21 00:00 Hydromorphone 1 Mg/1ml Inj 1 Mg/Ml Syringe IV 09/19/21 20:06 1 mg Q4H PRN PRN Administration PAIN Sodium Chloride 1,000 mls @ 999 mls/hr 09/14/21 18:30 09/14/21 18:40 Sodium Chloride 0.9% 1000 Ml IV 09/14/21 19:30 999 mls/hr .Q1H1M STA Administration Sodium Chloride Confirm 09/14/21 18:37 Sodium Chloride 0.9% 1000 Ml Administered 09/14/21 18:38 Dose 1,000 mls @ ud .ROUTE .STK-MED ONE Sodium Chloride 1,000 mls @ 100 mls/hr 09/14/21 20:15 09/16/21 14:23 Sodium Chloride 0.9% 1000 Ml IV 10/14/21 20:14 Not Given .Q10H APPLE Piperacillin Sod/Tazobactam 100 mls @ 200 mls/hr 09/15/21 00:00 09/15/21 06:14 Sod 3.375 gm/ Sodium Chloride IV 09/18/21 00:00 Not Given Q6HT APPLE Sodium Chloride Confirm 09/14/21 20:36 Sodium Chloride 100ml Mini-Bag Plus Administered 09/14/21 20:37 Dose 100 mls @ ud IV .STK-MED ONE Sodium Chloride Confirm 09/15/21 03:24 Sodium Chloride 100ml Mini-Bag Plus Administered 09/15/21 03:25 Dose 100 mls @ ud IV .STK-MED ONE Piperacillin Sod/Tazobactam 100 mls @ 200 mls/hr 09/15/21 12:00 09/17/21 05:54 Sod 3.375 gm/ Sodium Chloride IV 09/18/21 11:59 200 mls/hr Q6HT APPLE Administration Lactated Ringer's 1,000 mls @ 50 mls/hr 09/15/21 12:30 09/15/21 22:25 Lactated Ringers IV 09/16/21 08:29 Not Given .Q20H APPLE Clindamycin HCl/Dextrose 900 mg in 50 mls @ 100 mls/hr 09/15/21 12:30 Clindamycin-D5w 900 Mg/50 Ml IV 09/15/21 20:00 ONCALLTOOR APPLE Levofloxacin/Dextrose 500 mg in 100 mls @ 100 mls/hr 09/15/21 12:15 Levofloxacin 500mg/100ml D5w IV 09/15/21 20:00 ONCALLTOOR APPLE Isosorbide Mononitrate 30 mg 09/15/21 10:00 09/17/21 09:09 Isosorbide Mononitrate 30 Mg Tab PO 10/15/21 09:59 30 mg DAILY APPLE Administration Levothyroxine Sodium 75 mcg 09/15/21 10:00 09/17/21 09:10 Levothyroxine Sodium 75 Mcg Tablet PO 10/15/21 09:59 75 mcg DAILY APPLE Administration Midazolam HCl Confirm 09/15/21 17:44 Midazolam Hcl 2 Mg/2 Ml Vial Administered 09/15/21 17:45 Dose 2 mg .ROUTE .STK-MED ONE Morphine Sulfate 4 mg 09/14/21 18:30 09/14/21 18:40 Morphine Sulfate 4 Mg/Ml Injection IV 09/14/21 18:31 4 mg STAT ONE Administration Morphine Sulfate Confirm 09/14/21 18:37 Morphine Sulfate 4 Mg/Ml Injection Administered 09/14/21 18:38 Dose 4 mg .ROUTE .STK-MED ONE Ondansetron HCl 4 mg 09/14/21 18:30 09/14/21 18:40 Ondansetron Hcl 4 Mg/2 Ml Vial IV 09/14/21 18:31 4 mg STAT ONE Administration Ondansetron HCl Confirm 09/14/21 18:37 Ondansetron Hcl 4 Mg/2 Ml Vial Administered 09/14/21 18:38 Dose 4 mg .ROUTE .STK-MED ONE Ondansetron HCl 4 mg 09/14/21 20:07 Ondansetron Hcl 4 Mg/2 Ml Vial IV 10/14/21 20:06 Q6H PRN PRN NAUSEA/VOMITING Ondansetron HCl Confirm 09/15/21 19:49 Ondansetron Hcl 4 Mg/2 Ml Vial Administered 09/15/21 19:50 Dose 4 mg .ROUTE .STK-MED ONE Pantoprazole Sodium 40 mg 09/15/21 10:00 09/17/21 09:09 Protonix (Pantoprazole) 40 Mg Tablet PO 10/15/21 09:59 40 mg DAILY APPLE Administration Phenylephrine HCl Confirm 09/15/21 18:19 Phenylephrine 10 Mg/Ml Vial Administered 09/15/21 18:20 Dose 10 mg .ROUTE .STK-MED ONE Piperacillin Sod/Tazobactam Sod Confirm 09/14/21 20:35 Piperacillin/Tazobactam Sodium 3.375 Gm Vial Administered 09/14/21 20:36 Dose 3.375 gm IV .STK-MED ONE Piperacillin Sod/Tazobactam Sod Confirm 09/15/21 03:23 Piperacillin/Tazobactam Sodium 3.375 Gm Vial Administered 09/15/21 03:24 Dose 3.375 gm IV .STK-MED ONE Potassium Chloride 10 meq 09/14/21 23:44 09/15/21 00:00 Potassium Chloride 10 Meq Tablet PO 09/14/21 23:45 10 meq BID ONE Administration Potassium Chloride 10 meq 09/15/21 10:00 09/17/21 09:10 Potassium Chloride 10 Meq Tablet PO 10/15/21 09:59 10 meq BID APPLE Administration Pramipexole Dihydrochloride 0.5 mg 09/14/21 23:40 09/14/21 23:59 Pramipexole Di-Hcl 0.5 Mg Tab PO 09/14/21 23:41 0.5 mg HS ONE Administration Pramipexole Dihydrochloride 0.5 mg 09/15/21 22:00 09/16/21 21:25 Pramipexole Di-Hcl 0.5 Mg Tab PO 10/15/21 21:59 0.5 mg HS APPLE Administration Propofol Confirm 09/15/21 17:43 Propofol 10 Mg/Ml 20ml Vial Administered 09/15/21 17:44 Dose 200 mg IV .STK-MED ONE Rocuronium Tate Confirm 09/15/21 17:43 Rocuronium Tate 100 Mg/10ml Vial Administered 09/15/21 17:44 Dose 50 mg .ROUTE .STK-MED ONE Simvastatin 10 mg 09/14/21 23:42 09/15/21 00:00 Simvastatin 10 Mg Tablet PO 09/14/21 23:43 10 mg HS ONE Administration Simvastatin 10 mg 09/15/21 22:00 09/16/21 21:25 Simvastatin 10 Mg Tablet PO 10/15/21 21:59 10 mg HS APPLE Administration Succinylcholine Chloride Confirm 09/15/21 17:43 Succinylcholine Chloride 200mg/10 Ml Vial Administered 09/15/21 17:44 Dose 140 mg .ROUTE .STK-MED ONE Sugammadex Sodium Confirm 09/15/21 19:49 Sugammadex Sodium 200 Mg/2 Ml Vial Administered 09/15/21 19:50 Dose 200 mg IV .STK-MED ONE Intake & Output (Last 24 hours) 09/15/21 09/16/21 09/17/21 09/18/21 11:59 11:59 11:59 11:59 Intake Total 480 2118 1580 Output Total 30 Balance 480 2118 1550 Weight 134.6 kg Patient Care Notes (Last 24 hours) 09/17/21 09:46 Case Management Note by Miracle Holliday S/W PATIENT SHE CONTINUES TO DENY ANY NEW NEEDS REGARDING DC AT THIS TIME. SHE PLANS TO RETURN HOME WITH HER SISTER TO STAY WITH HER AND ASSIST HER Initialized on 09/17/21 09:46 - END OF NOTE Code(s): K81.0 - ACUTE CHOLECYSTITIS (2) Hypertension Status: Chronic Code(s): I10 - ESSENTIAL (PRIMARY) HYPERTENSION - Discharge Discharge Date: 09/17/21 Disposition: Home, Self-Care Condition: Stable Prescriptions: New Hydrocodone/Acetaminophen [Hydrocodone-Acetamin 5-325 mg] 1 tab PO Q6HPRN PRN 7 Days #20 tablet MDD 4 PRN Reason: Pain Hydrocodone/Acetaminophen [Hydrocodone-Acetamin 5-325 mg] 1 tab PO Q4HPRN PRN #24 tablet MDD 6 PRN Reason: Pain No Action Omeprazole 20 MG [Prilosec 20 mg] 20 mg PO DAILY Aspirin 81 gm Chew [Baby Aspirin 81 mg Chew] 81 mg PO DAILY Levothyroxine Sodium 50 Mcg [Synthroid 50 Mcg] 75 mcg PO DAILY Pramipexole Di-HCl [Pramipexole Dihydrochloride] 1 tab PO HS Potassium Chloride 10 Meq Tab* [Klor Con 10 MEQ] 1 tab PO BID Isosorbide Mononitrate 30 mg [Imdur 30 MG] 1 tab PO DAILY Benazepril/Hydrochlorothiazide [Benazepril-Hctz 10-12.5 mg Tab] 1 tab PO DAILY Atorvastatin Calcium 10 mg PO HS Calcium Carbonate/Vitamin D3 [Vitamin D-3 400 Units Tablet] 1 tab PO DAILY Bumetanide 1 mg [Bumex 1 mg] 1 mg PO DAILY Instructions: Niall-Egan Drain, Cholecystectomy, Laparoscopic Surgery, Hydrocodone and Acetaminophen Follow up with: TEN WHITEHEAD MD [ACTIVE STAFF] - 09/23/21 2:00 pm (at [facility] ) OSMAR LEE MD [Primary Care Provider] - 09/25/21 2:00 pm Forms: Discharge Instructions
== END 2021-09-17 10:53 | disposition home or self-care (01) ==
LOC: ED 17:58 → MED SURG 22:16
PROVIDERS: ADMIT Family Medicine; ATTEND General Practice
DX: K81.0 Acute cholecystitis (principal); K82.A1 Gangrene of gallbladder in cholecystitis; K66.0 Peritoneal adhesions (postprocedural) (postinfection); I10 Essential (primary) hypertension; E03.9 Hypothyroidism, unspecified; Z79.899 Other long term (current) drug therapy; Z20.822 Contact with and (suspected) exposure to COVID-19
CPT/HCPCS: 36415; 47562; 74176; 76705; 80053; 81001; 82150; 83690; 85025; 94640; 94760; 96374; 96375; 99285; U0003; 99100; G0378; J0330; J1170; J2250; J2270; J2370; J2405; J2704; J3010; A9270-GY